=== PATIENT | female | born 1955 | race Caucasian/White ===

== ENCOUNTER 2024-04-17 08:34 | Outpatient (CLI) | payer OTHER, SELFPAY ==
--- NOTE | ~2024-04-17 | MMUS_ITS ---
1 EXAMINATION: US breast biopsy RT w image, MM post biopsy diagnostic RT DATE: 04/17/2024 10:01 (accession [id number]), 04/17/2024 09:52 (accession [id number]) INDICATION: 68 year old woman with significant family history of breast cancer presents with a right breast mass for ultrasound-guided biopsy BREAST PARENCHYMAL COMPOSITION:Not dense: Scattered fibroglandular pattern TECHNIQUE: The procedure including the risks, benefits, and alternatives was discussed with the patie nt. Risks discussed included bleeding and infection. The patient understood the risks and agreed to proceed. The skin overlying the right breast lesion was prepped and draped in usual sterile fashion. Anesthet ic was administered with 1% lidocaine subcutaneously. Limited ultrasound examination of the right breast was then again performed. At the 4:00 position of the right breast approximately 5 cm from the nipple is an irregular focus of decreased echogenicity with angular margins measuring 11 x 13 x 9 mm, suitable for biopsy. A 13G introducer was placed using ultrasound guidance into the abnormality at the 4:00 position of th e right breast, and the inner needle removed. A 14-gauge biopsy device was then used to obtain 3 biopsy specimens under continuous sonographic guid ance. The biopsy device was then removed, and through the introducer a coil marker was placed. The entry site was cleaned and dressed with Steri-Strips. There were no immediate complications. Post biopsy mammography was then performed in both the CC and MLO positions demonstrating a coil micr oclip in the lower inner quadrant of the right breast without a significant perilesional hematoma. IMPRESSION: 1. Technically successful ultrasound-guided core needle biopsy of the mammographic and sonographic ab normality at the 4:00 position of the right breast with postprocedure mammogram marker placement. Pathology pending Reviewed, dictated and finalized at location A. DRY ROUTEMAN IMPRESSION: 1. Technically successful ultrasound-guided core needle biopsy of the mammograp hic and sonographic abnormality at the 4:00 position of the right breast with p ostprocedure mammogram marker placement. Pathology pending
--- OUTSIDE RECORDS SUMMARY | 2024-04-17 08:56 | XMS_ITS | Data Portability ---
Author Organization [facility], Main Office Address [address] [place] [address] Care Team Providers Care Energy Efficiency Finance Manager Name Role Phone ENZO BUTTS Primary Care Provider ENZO BUTTS Referring Provider Assessment Encounter Date Assessment Date Assessment LastModified by Organization Details LastModified Time 01/20/2023 01/20/2023 HPI: 67-year-old female who came in today for evaluation of her right knee pain. She fell early September directly onto her right patella. Since that time she has been having pain in the knee. She saw her primary care doctor and had x-rays done on September 26. I reviewed the x-rays which show no definite bony abnormalities. Patient's chief complaint is that she cannot kneel on the right knee. She has severe pain when she does this. Most the pain is over the anterior lateral aspect of the knee. She has been using a cane his she has been limping a little bit and the knee will occasionally buckle on her. Prior to this fall she was having no problems with the knee. Patient has been taking [id number] Advil on an as-needed basis and this seems to help a little bit. Physical exam: 67-year-old female she is 5 ft tall and 161 lb BMI is 30.9. She walks with a minimal limp. She has a trace effusion in the right knee. Range of motion is from 0-140 degrees, at full flexion she has some discomfort in the anterior aspect of the knee. Hip range of motion is full without discomfort. She has severe pain with patellofemoral grind and inhibition testing. No medial or lateral joint line tenderness. She has no edema in lower extremity. 2+ dorsalis pedis pulse. Impression: Patient has anterior knee pain from fall in September. Her biggest complaint is that she can not kneel on the knee and we talked about impact injuries to the patella. I discussed with her that sometimes after an impact injury such as this may take another 6 or 7 months before she is comfortable kneeling on it. She has no real arthritic changes on the x-rays. There is no bony abnormalities. This is something that unfortunately is going to take time to improve. It has been almost 4 months since her fall and I did offer her a cortisone injection to see if this might help with some of the irritability but she declined this. She will keep this in mind if she feels she wishes to proceed with that in the future. I did note patient's past medical history is she had a coronary artery bypass graft done in 2007. She continues to smoke. I strongly advised her to quit smoking at this point. She has not seen a outside installer apprentice for over 10 years and I also recommended that she talk with her primary care doctor about being referred to a outside installer apprentice since she had surgery in no way it and she continues to smoke and I think he would be a good idea to have her evaluated. She will talk with her primary about this. We will see her back as needed. 30 minutes was spent in treatment patient more half of this in [id number] conversation [email or web address] Not available 01/20/2023 16:44:20 Plan of Treatment Reminders Order Date Submit Date Provider Last Modified By Organization Details Last Modified Time Details Appointments Any 15 2024 10:45A M ROBERTO Carlson Not available Not available Not available Lab hemoglobi n A1C, fingersti ck 2023 024 [facility] [address], [place], [address], 04/07/2023 10:45:58 T3, total, serum [address] (Lab), [address] [place], [address], 07/12/2023 08:46:38 T4, free, serum [address] (Lab), [address] [place], [address], 07/12/2023 08:46:38 TSH, serum or plasma 2023 024 [facility] (Lab), [address] [place], [address], 07/05/2023 17:34:19 unlisted lab - TSH receptor antibody [address] (Lab), [address] [place], [address], 07/12/2023 08:46:38 thyroid peroxidas e (tpo) Ab, serum [address] (Lab), [address] [place], [address], 07/12/2023 08:46:38 Hepatitis B virus core Ab, qual immunoass ay, serum or plasma [address] (Lab), [address] [place], [address], 07/12/2023 08:46:39 glycohemo globin, total, blood 2023 024 [facility] (Lab), [address] [place], [address], 07/05/2023 17:34:19 noninvasi ve colorecta l cancer DNA + occult blood screening , QL, stool [address], [address], [place], [address], 01/09/2024 17:12:48 glycohemo globin, total, blood [address] (Lab), [address] [place], [address], 01/09/2024 17:12:47 glycohemo globin, total, blood 2024 025 [facility] ([facility]), [address] [place], [address], 04/10/2024 11:44:16 Referral physical therapist referral - *Please call pt to schedule* 2023 024 [email or web address] 56 [facility], [address], [place], [address], 05/11/2023 11:48:01 gynecolog ist referral - Please call patient to schedule an appointme nt. Thank you. 2023 024 [email or web address] Terri Archibald, 2022 [facility], [facility] [address], [place], [address], Ph [phone] 08/03/2023 08:57:20 Procedures None recorded. Surgeries None recorded. Imaging XR, knee 2022 023 [email or web address] [facility] [place], [facility] [address] [facility] [address], [place], [address], 01/20/2023 16:46:06 MAMMO, screening , digital, bilateral 2023 024 [email or web address] 56 [facility] ([facility]), [address] [place], [address], 07/20/2023 09:21:55 MAMMO, screening , digital, bilateral - *Please call pt to schedule* 2023 024 [facility] ([facility]), [address] [place], [address], 02/07/2024 10:59:05 DEXA, axial skeleton - *Please call pt to schedule* 2023 024 [facility] ([facility]), [address] [place], [address], 02/07/2024 09:50:36 LDCT, chest, for lung cancer screening - *Please call pt to schedule* 2023 024 [facility] ([facility]), [address] [place], [address], 02/06/2024 14:22:23 Medication Orders cyclobenz aprine 5 mg tablet 2023 024 [facility]/Pharmacy #[id number], [address] [place] [address], [address], 07/05/2023 11:00:08 Depo-Medr ol 80 mg/mL suspensio n for injection 2023 024 [email or web address] 1 Not available 04/06/2023 14:42:42 tramadol 50 mg tablet 2023 024 [facility]/Pharmacy #[id number], [address] [place] [address], [address], 04/06/2023 10:36:47 Trulicity 1.5 mg/0.5 mL subcutane ous pen injector [address] [id number], [address] [place] [address], [address], 07/05/2023 11:12:52 ondansetr on 4 mg disintegr ating tablet 2024 025 [id number], [address] [place], [place], [id number], 04/02/2024 12:59:57 metoclopr amide 10 mg tablet [address] [facility] #60981, [address] [place], [place], [id number], 04/02/2024 12:59:56 Trulicity 3 mg/0.5 mL subcutane ous pen injector [address] [facility] #70444, [address] [place], [place], [id number], 04/02/2024 12:55:35 Trelegy Ellipta 100 mcg-62.5 mcg-25 mcg powder for inhalatio n [address] [facility] #86407, [address] [place], [place], [id number], 04/02/2024 12:55:34 Patient TargetsNo targets recorded. Patient Instructions Encounter Date Encounter Id Patient Instructions Last Modified By Organization Details Last Modified Time 01/01/2024 [id number] dementia rating scale-2* [email or web address] Not available 01/01/2024 13:53:09 Timed Up and Go test (TUG)* Not available 01/01/2024 13:53:09 alcohol misuse* [email or web address] Not availab le 01/01/2024 13:53:09 depression screening* Not available 01/01/2024 13:53:09 multi-dimensiona l health assessment questionnaire* Not available 01/01/2024 14:14:41 Personalized [facility] lt Plan and Screening Recommendations Advance Directives - Do you have one? Yes Advance Directives - Do we have your advance directive on file in your health record? Primary Prevention/Interven tion (prevents or decreases the chance of common diseases from occurring) Smoking Risk: Alcohol Misuse Screening: Negative Weight: Appropriate Overwei ght continue your current weight loss efforts try to lose 5% of your body weight try to lose 10% of your body weight Physical activity: minimum of 10-20 minutes of activity that causes mild breathlessness/day minimum of 20-30 minutes activity that causes mild breathlessness/day Nutrition: Good Average Fall Risk (screened today): Refer to attached handout Preventing Falls: After your Visit Recommend regular use of cane or walker Vaccines Pneumococcal: Ordered Recommended today Recommended today, but you have declined Influenza: Ordered Recommended today Recommended today, but you have declined Chronic Disease Risks Stroke: Low Risk Intermediate Risk I have no recommendations Act robert diagnosis, Continue current treatment plan Heart Attack: Low risk Intermediate Risk I have no recommendations Act robert diagnosis, Continue current treatment plan Clogging of the Arteries: Low risk Intermediate Risk I have no recommendations Act robert diagnosis, Continue current treatment plan Diabetes: Secondary Prevention/Interven tion (detects treatable diseases before they may cause symptoms, disability, or ) Breast Cancer Screening with mammogram: Your next mammogram: Ordered Recommended today Cervical/Uterine/Ov milady Cancer Screening: Your next PAP/pelvic in: Referral to quality assurance director Recomm ended today Osteoporosis Screening: Your next DEXA in: Ordered Recomme nded today Date Screening Last Performed: Colon Cancer Screening: In: Ordered Recomme nded Eye Disease Screening: Dementia Risk: Low I have no recommendations Depression Screening: Negative Positive [email or web address] Not available 01/01/2024 14:35:50 Reason for Referral Physical Therapist Referral for Strain of muscle of right shoulder *Please call pt to schedule* Referring Physician: Enzo Butts [facility], Encounter Date: 04/06/2023 Smelter Operator Referral for Sc reening for malignant neoplasm of cervix Please call patient to schedule an appointment. Thank you. Referring Physician: Family Kate Coleman, Encounter Date: 07/05/2023 Results Created Date Observation Date Name Description Value Unit Range Abnormal Flag Note LastModifiedBy Organization Detail LastModifiedTime 12/28/1912/27/2022 hemog lobin A1C, finge rstic k HgbA1C 8.7% Not Available [facility], [place], [address], 12/27/2022 11:28:24 04/07/19 24 04/07/2023 hemog lobin A1C, finge rstic k HgbA1C 7.1 Not Available [facility], [place], [address], 04/07/2023 09:59:07 01/21/20 23 XR, knee No observ ation record ed. [email or web address] [facility] [place] [address], [place], [address], 01/20/2023 16:40:46 02/06/20 24 02/06/2024 LDCT, chest , for lung cance r scree siena No observ ation record ed. [address] [place], [address], 03/14/2024 14:48:26 02/06/20 24 02/06/2024 LDCT, chest , for lung cance r scree siena No observ ation record ed. [address] [place], [address], 03/14/2024 14:48:27 02/07/20 24 02/06/2024 DEXA, axial skele ton No observ ation record ed. [address] [place], [address], 03/14/2024 14:48:28 02/07/20 24 02/06/2024 DEXA, axial skele ton No observ ation record ed. [address] [place], [address], 03/14/2024 14:48:28 02/07/20 24 02/06/2024 MAMMO , scree siena, digit al, bilat eral No observ ation record ed. [address] [place], [address], 03/14/2024 14:48:29 02/07/20 24 02/06/2024 MAMMO , scree siena, digit al, bilat eral No observ ation record ed. [email or web address] [place] [address] [address] [place], [address], 02/07/2024 16:35:15 03/19/20 24 03/19/2024 , breas t, unila teral No observ ation record ed. [email or web address] [facility] [address], [place], [address], 03/22/2024 12:45:03 Result Notes None recorded. Problems Name Problem SNOMED Code Status Onset Date Resolution Date Notes Provider Name and Address Organization Details Recorded Time Hyperchole sterolemia 49966904 Active 2021 Not Available [facility] 4 07:27:58 Myocardial infarction 04101115 Active 2021 Not Available [facility] 4 07:27:58 Arthritis 4930397 Active 2021 Not Available [facility] 4 07:27:59 Diabetes mellitus 39660768 Active 2021 Not Available [facility] 4 07:27:59 Type 2 diabetes mellitus without complicati on 347327454 Active 2022 Not Available [facility] 4 07:27:58 Pain of right knee joint 9700186587490 00 Active 2022 Not Available [facility] 4 07:27:59 Chronic obstructiv e pulmonary disease 12544683 Active 2022 Not Available [facility] 4 07:27:58 Gastroesop hageal reflux disease 427707977 Active 2022 Not Available [facility] 4 07:27:58 Obstructiv e sleep apnea syndrome 31169610 Active 2022 Not Available [facility] 4 07:27:59 Strain of muscle of right shoulder 5870569142596 9105 Active 2023 Not Available [facility] 4 07:27:58 Serum thyroid stimulatin g hormone level outside reference range 234495423 Active 2023 ROBERTO Carlson [address], [facility] [address], [place], [address] , [facility] [employer] 4 11:10:02 Screening for malignant neoplasm of breast Active 2023 ROBERTO Carlson [address], [address], [place], [address] , [place] [facility] [employer] 4 11:13:25 Screening for malignant neoplasm of cervix Active 2023 ROBERTO Carlson [address], [address], [place], [address] , [employer] 4 11:14:04 Screening mammograph y Active 2023 ROBERTO Carlson [address], [address], [place], [address] , [employer] [facility] [facility] 4 13:05:50 Screening for osteoporos is Active 2023 ROBERTO Carlson [address], [address], [place], [address] , [employer] [facility] 4 13:54:52 Postmenopa usal osteoporos is 840234000 Active 2023 ROBERTO Carlson [address], [address], [place], [address] , [employer] [facility] 4 13:56:23 Nicotine dependence 29171495 Active 2023 ROBERTO Carlson [address], [address], [place], [address] , [employer] [facility] 4 13:57:11 Screening for malignant neoplasm of colon Active 2023 ROBERTO Carlson [address], [address], [place], [address] , [employer] [facility] [facility] 4 13:59:10 Mammograph y abnormal 044240687 Active 2023 ROBERTO Carlson [address], [address], [place], [address] , [employer] [facility] 4 16:35:38 Ultrasonog rosa of breast abnormal 8465863373140 9104 Active 2024 ROBERTO Carlson [address], [address], [place], [address] , [employer] 5 12:44:46 Gastropare sis syndrome 421729578 Active 2024 ROBERTO Carlson [address] [facility], [facility] [address], [place], [address] , [facility] [employer] 12:57:33 Nausea 280778888 Active 2024 ROBERTO Carlson [address] [facility], [facility] [address], [place], [address] , [employer] 5 12:58:11 Notes:Medical History: Depre ssion Right tinnitus Obesity with mild OSAHS, AHI = 13, 06/23/21, on CPAP c/o IVRC Hypertension Hyperlipidemia T2DM with neuropathy CAD s/p MT OA Procedure History: Right hand ganglion cyst excision 1965 T&A 1978 Left hand ganglion cyst excision 1985 1992 2 vessel CABG 2007 Staph wound I&D 2007 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 Procedures Surgical History Date Name Laterality Status Provider Name and Address Organization Details Recorded Time Medicare Wellness CPT Code, subsequent completed Leila North, [place] [employer] 01/01/2024 12:54:17 completed Not Available [facility] 0 05/19/2022 00:26:40 coronary artery bypass grafts x 2 completed Not Available [facility] 05/19/2022 00:26:40 Imaging Results Imaging Date Name Status LastModified by Organiz ation Details LastModified Time 01/20/2023 XR, knee completed [email or web address] [facility] [place] [address], [place], [address], 01/20/2023 16:40:46 02/06/2024 LDCT, chest, for lung cancer screening completed [address] [place], [address], 03/14/2024 14:48:26 02/06/2024 LDCT, chest, for lung cancer screening completed [address] [place], [address], 03/14/2024 14:48:27 02/06/2024 DEXA, axial skeleton completed [address] [place], [address], 03/14/2024 14:48:28 02/06/2024 DEXA, axial skeleton completed [address] [place], [address], 03/14/2024 14:48:28 02/06/2024 MAMMO, screening, digital, bilateral completed [address] [place], [address], 03/14/2024 14:48:29 02/06/2024 MAMMO, screening, digital, bilateral completed [email or web address] [place], [address], 02/07/2024 16:35:15 03/19/2024 US, breast, unilateral completed [email or web address] [facility] [address] [place], [address], 03/22/2024 12:45:03 Procedure Notes None recorded. Medical Equipment None Reported. Allergies No known drug allergies Medications Name Sig Start Date Stop Date Status Note LastModified by Organization Details LastModified Time cyclobenz aprine 10 mg tablet TAKE 1 TABLET BY MOUTH THREE TIMES A DAY NEEDED FOR MUSCLE SPASMS active Not Available Not Available No t Available buspirone 5 mg tablet TAKE 1 TABLET BY MOUTH TWICE A DAY active Not Available Not Available No t Available trazodone 50 mg tablet TAKE 1/2 - 1 TABLET BY MOUTH NEEDED NIGHTLY active Not Available Not Available No t Available hydrocodo ne 5 mg-acetam inophen 325 mg tablet TAKE 1 TABLET BY MOUTH EVERY 6 HOURS NEEDED FOR PAIN. INDICATI ONS: ACUTE PAIN <7 DAY SUPPLY active Not Available Not Available No t Available meloxicam 15 mg tablet TAKE 1 TABLET (15 MG TOTAL) BY MOUTH DAILY. active Not Available Not Available No t Available amlodipin e 5 mg tablet TAKE 1 TABLET (5 MG TOTAL) BY MOUTH DAILY. active Not Available Not Available No t Available omeprazol e 40 mg capsule,d elayed release TAKE 1 CAPSULE BY MOUTH EVERY DAY active Not Available Not Available No t Available aspirin 81 mg tablet,de layed release Take 1 tablet every day by oral route. 2021 active Not Available Not Available Not Avai lable tramadol 50 mg tablet TAKE 1 TABLET BY MOUTH TWICE A DAY NEEDED active Not Available Not Available No t Available Depo-Medr ol 80 mg/mL suspensio n for injection Take 1 mL by injectio n route. 2023 active Not Available Not Available Not Avai lable lisinopri l 10 mg tablet TAKE 2 TABLETS BY MOUTH EVERY DAY active Not Available Not Available No t Available glimepiri de 4 mg tablet TAKE 2 TABLETS BY MOUTH DAILY WITH BREAKFAS T. active Not Available Not Available No t Available gabapenti n 300 mg capsule TAKE 1 CAPSULE BY MOUTH TWICE A DAY active Not Available Not Available No t Available gabapenti n 100 mg capsule TAKE 1 CAPSULE BY MOUTH TWICE A DAY 01/05 completed Not Available Not Available Not Available ondansetr on 4 mg disintegr ating tablet DISSOLVE ONE TABLET ON TOP OF THE TONGUE THREE TIMES DAILY 30 MINUTES BEFORE FOOD active Not Available Not Available No t Available metoclopr amide 10 mg tablet TAKE 1 TABLET BY MOUTH FOUR TIMES DAILY FOR 14 DAYS active Not Available Not Available No t Available escitalop ariana 20 mg tablet TAKE 1 TABLET BY MOUTH EVERY DAY active Not Available Not Available No t Available cyclobenz aprine 5 mg tablet Take 1 tablet every day by oral route at bedtime for 30 days. 07/04 completed dose adjustme nt Not Available Not Available Not Available rosuvasta tin 10 mg tablet TAKE 1 TABLET BY MOUTH EVERY DAY 09/26 completed Not Available Not Available Not Available Alcohol Prep Pads USE 1 DEVICE ONCE DAILY active Not Available Not Available No t Available aripipraz ole 2 mg tablet TAKE 1 TABLET BY MOUTH EVERYDAY AT BEDTIME 06/09 completed Not Available Not Available Not Available Januvia 100 mg tablet TAKE 1 TABLET BY MOUTH EVERY DAY active Not Available Not Available No t Available diclofena c 1 % topical gel APPLY 2 GRAMS TO THE AFFECTED AREAS 4 TIMES PER DAY active Not Available Not Available No t Available OneTouch Verio test strips USE TO TEST DAILY. E11.9 active Not Available Not Available No t Available Trulicity 1.5 mg/0.5 mL subcutane ous pen injector INJECT 1.5 MG SUBCUTAN EOUS ONE DAY A WEEK active Not Available Not Available No t Available Trulicity 0.75 mg/0.5 mL subcutane ous pen injector INJECT 0.75MG SUBCUTAN EOUSLY ONE TIME PER WEEK 12/31 completed Not Available Not Available Not Available OneTouch Verio Flex Meter PLEASE SEE ATTACHED FOR DETAILED DIRECTIO NS active Not Available Not Available No t Available Trelegy Ellipta 100 mcg-62.5 mcg-25 mcg powder for inhalatio n INHALE 1 PUFF BY MOUTH DAILY. RINSE MOUTH AFTER USE active Not Available Not Available No t Available OneTouch Delica Plus Lancet 33 gauge USE TO TEST DAILY E11.9 active Not Available Not Available No t Available Trulicity 3 mg/0.5 mL subcutane ous pen injector ADMINIST ER 3 MG UNDER THE SKIN EVERY WEEK active Not Available Not Available No t Available BinaxNOW COVID-19 Ag Self Test kit TAKE DIRECTED 12/21 completed Not Available Not Available Not Available Vitals Date Recorded Body height Body mass index (BMI) Body weight Provider Name and Address Organization Details Last Updated DateTime 01/20/2023 153.67 cm 30.9 kg/m2 53215.37 g NELDA John [facility] 01/20/2023 11:36:37 Date Recorded Body height Body mass index (BMI) Body weight Body temperature Heart rate Oxygen saturation Oxygen saturation in Arterial blood by Pulse oximetry Systolic blood pressure Diastolic blood pressure Provider Name and Address Organization Details Last Updated DateTime 4 153.67 cm 30 kg/m2 23481.4 1 g 97.4 [degF] 82 /min 97 % 97 % 124 mm[Hg] 76 mm[Hg] Ximena Hernandez MA [facility] 09:57:29 Date Recorded Body height Body mass index (BMI) Body weight Body temperature Respiratory rate Heart rate Oxygen saturation Oxygen saturation in Arterial blood by Pulse oximetry Systolic blood pressure Diastolic blood pressure Provider Name and Address Organization Details Last Updated DateTime 4 153.67 cm 31.3 kg/m2 02967.5 6 g 97.4 [degF] 16 /min 94 /min 97 % 97 % 142 mm[Hg] 80 mm[Hg] Leila North RN [facility] [employer] [facility] 4 11:02:41 Date Recorded Body height Body mass index (BMI) Body weight Body temperature Heart rate Oxygen saturation Oxygen saturation in Arterial blood by Pulse oximetry Systolic blood pressure Diastolic blood pressure Provider Name and Address Organization Details Last Updated DateTime 4 153.67 cm 31.1 kg/m2 57248.9 6 g 97.6 [degF] 71 /min 97 % 97 % 146 mm[Hg] 86 mm[Hg] Leila North RN [facility] [employer] [facility] 4 13:01:45 Date Recorded Body height Body mass index (BMI) Body weight Body temperature Heart rate Oxygen saturation Oxygen saturation in Arterial blood by Pulse oximetry Systolic blood pressure Diastolic blood pressure Provider Name and Address Organization Details Last Updated DateTime 5 153.67 cm 30 kg/m2 94406.8 5 g 97.7 [degF] 94 /min 98 % 98 % 156 mm[Hg] 78 mm[Hg] Alyssa Roca RN [facility] 5 12:49:28 Social History Question Answer Notes LastModified by Organizat ion Details LastModified Time Tobacco Smoking Status Current Every Day Smoker 1ppd Not Available [facility] 05/19/2022 00:26:20 What Is Your Level Of Alcohol Consumption? None [id number] Information not available 05/19/2022 What Is Your Level Of Caffeine Consumption? Moderate [id number] Information not available 05/19/2022 In The 14 Days Before Symptom Onset, Have You Had Close Contact With A Laboratory-confi rmed COVID-19 While That Case Was Ill? No MIGRATION.[id number] Information not available 05/19/2022 In The 14 Days Before Symptom Onset, Have You Had Close Contact With A Person Who Is Under Investigation For COVID-19 While That Person Was Ill? No MIGRATION.[id number] Information not available 05/19/2022 What Type Of Diet Are You Following? REGULAR MIGRATION.07696 92240 Information not available 05/19/2022 Do You Have An Electrostatic Air Filter? No MIGRATION.85442 19753 Information not available 05/19/2022 Are There Any Guns Present In Your Home? No MIGRATION.85694 52494 Information not available 05/19/2022 Do You Have A Humidifier? No MIGRATION.56567 27849 Information not available 05/19/2022 Where Do You Live? [place]House MIGRATION.84962 34462 Information not available 05/19/2022 Do You Have Moisture Problems In Your Home? No MIGRATION.66753 67425 Information not available 05/19/2022 What Was The Date Of Your Most Recent Tobacco Screening? 01/01/2024 [email or web address] Information not available 01/01/2024 Do You Have Any Pets? Yes MIGRATION.57256 77415 Information not available 05/19/2022 Do You Have Smoke And Carbon Monoxide Detectors In Your Home? Yes MIGRATION.94668 39870 Information not available 05/19/2022 Are You Passively Exposed To Smoke? Yes MIGRATION.67056 06960 Information not available 05/19/2022 How Much Tobacco Do You Smoke? 1 PPD [email or web address] Information not available 01/05/2023 Do You Feel Stressed (tense, Restless, Nervous, Or Anxious, Or Unable To Sleep At Night)? [id number] MIGRATION.50007 83470 Information not available 05/19/2022 Do You Use Sunscreen Routinely? No MIGRATION.00292 79513 Information not available 05/19/2022 How Many Years Have You Smoked Tobacco? 40 MIGRATION.92278 74075 Information not available 05/19/2022 Have You Recently Traveled Abroad? No MIGRATION.59341 77927 Information not available 05/19/2022 Sex: Unknown Functional Status Question Answer Note LastModified by Organizat ion Details LastModified Time What is your exercise level? Occasional [id number] Information not available 05/19/2022 Mental Status None recorded. Family History Relationship Description Onset Age of this Age Resolved Age Notes LastModified by Organization Details LastModified Time Mother Diabetes mellitus MIGRATION.732 [id number] Not available 05/19/2022 00:26:41 Mother Family history of malignant neoplasm MIGRATION.246 [id number] Not available 05/19/2022 00:26:41 Paternal Grandfather Diabetes mellitus MIGRATION.580 [id number] Not available 05/19/2022 00:26:42 Father Myocardial infarction MIGRATION.651 [id number] Not available 05/19/2022 00:26:42 Medical History Condition Response BLINDNESS N RHEUMATIC FEVER N KIDNEY STONES N BLADDER PROBLEMS N MRSA N OTHER # 1 N POLIO N LUNG DISEASE/DISORDER N HISTORY OF DRUG ABUSE N RADIATION / CHEMOTHERAPY N COPD N Other # 2 N BLOOD DISEASES N SURGERY N EAR OR HEARING PROBLEMS N MUMPS N SHINGLES N BOWEL PROBLEMS N FEMALE PROBLEMS / INFECTIONS N DEPRESSION (INCLUDING POST ) N STROKE/TIA N THYROID DISEASE N ULCERS N BENIGN PROSTATIC HYPERPLASIA N MEASLES N CERVICALGIA N HYPOTENSION N TB SKIN TEST N MYOCARDIAL INFARCTION N PARAPELGIA N OBESITY N GERD/NAUSEA N ANEURYSM N URINARY/BLADDER/KIDNEY PROBLEMS N CORONARY ARTERY DISEASE (CAD) N MENIERE'S DISEASE N ADDICTION CONCERNS N ENDOMETRIOSIS N USE OF BLOOD THINNERS N SKIN PROBLEMS N EMPHYSEMA N GASTROINTESTINAL DISORDER N MUSCLE,JOINT OR BONE PROBLEMS N GASTROINTESTINAL BLEEDING N BLOOD CLOTS N ASTHMA N CATARACTS N ERECTILE DYSFUNCTION N GI PROBLEMS N CHF N Low Testosterone N NEUROPATHY N INFERTILITY N AIDS/HIV N FRACTURES N CHEMOTHERAPY / RADIATION N VISION/EYE PROBLEMS N LIVER DISEASE N MALE HYPOGONADISM N HYPERTENSION N TOURETTE'S N ANXIETY DISORDER N BLOOD TRANSFUSION N ANEMIA/BLOOD DISORDER N CHRONIC EAR INFECTIONS N BRONCHITIS N TUBERCULOSIS N GLAUCOMA N FOOT PROBLEM N DIVERTICULITIS N CHICKENPOX N SLEEP APNEA N ALLERGIES/HAYFEVER N INFECTIOUS DISEASE N HEART ARRHYTHMIA N PROSTATE N INSOMNIA N HIGH CHOLESTEROL / HYPERLIPIDEMIA Y HYPERTHYROIDISM N EYE PROBLEMS N EATING DISORDER N EDEMA N CHRONIC PAIN SYNDROME N CONSTIPATION N CAROTID BLOCKAGE N BACK / NECK PROBLEMS Y HAVE YOU BEEN HOSPITALIZED OR SEEN IN [facility] IN THE PAST YEAR ? N ATHEROSCLEROSIS N BREAST PROBLEMS N DIALYSIS N ECZEMA N FIBROMYALGIA N OSTEOPOROSIS N ARTHRITIS Y NO SIGNIFICANT PAST MEDICAL HISTORY N APPENDICITIS N DIABETES, TYPE N BAD TEETH N HEARTBURN / REFLUX Y ADD/ADHD N AUTISM SPECTRUM DISORDER (ASD) N HEPATITIS / LIVER DISEASE N PULMONARY DISEASE N GOUT N SLEEP DISORDER N ALZHEIMER'S DISEASE N PAIN N HERPES N DEMENTIA N HEADACHES/MIGRAINES Y SEIZURES/EPILEPSY N VASCULAR DISEASE N PACEMAKER N DIZZINESS N HEART DISEASE/HEART PROBLEMS Y KIDNEY DISEASE N DEVELOPMENTAL OR BEHAVIORAL DISORDERS N MULTIPLE SCLEROSIS N SCARLET FEVER N MENTAL DISORDER/ILLNESS N CARDIAC ARRHYTHMIA N CANCER: SPECIFY N PNEUMONIA N ATRIAL FIBRILLATION N Gall Stones N PULMONARY EMBOLISM N AUTOIMMUNE DISEASE N Gynecological HistoryNo gynecological history recorded. Obstetrics History GPAL:G 0 P 0 0 0 0 Immunizations Vaccine Type Date Status Note Provider Nam e and Address Organization Details Recorded Time COVID-19, mRNA, LNP-S, PF, 30 mcg/0.3 mL dose 06/22/2021 completed Not Available [facility] 4 07:27:59 COVID-19, mRNA, LNP-S, PF, 30 mcg/0.3 mL dose 02/14/2021 completed Not Available [facility] 4 07:27:59 COVID-19, mRNA, LNP-S, PF, 30 mcg/0.3 mL dose 01/24/2021 completed Not Available [facility] 4 07:27:59 Past Encounters Encounter ID Performer Location Encounter Start Date Encounter Closed Date Diagnosis/Indication Diagnosis SNOMED-CT Code Diagnosis ICD10 Code Diagnosis Note [id number] [facility] Jasvir garcia [facility]ly [facility] [address] [place] [address] 06/09/2021 00:00:00 06/09/2021 19:55:37 [id number] [facility] Jasvir garcia [facility] [address] [place] [address] 07/07/2021 00:00:00 07/07/2021 09:32:03 [id number] [facility] [address] [address] 12/21/2021 00:00:00 12/21/2021 15:38:37 [id number] Jeffrey Guaman MD [facility] Jasvir garcia [facility] [address] [place] [address] 09/26/2022 09:32:19 09/26/2022 10:09:14 Type 2 diabetes mellitus without complication 540119855 E11.9 A1C is 11.3% Start trulicity Pain of ri ght knee joint 3006276518 42434 M25.561 Chronic ob structive pulmonary disease 18131091 J44.9 [id number] Jeffrey Guaman MD [facility] Jasvir garcia [address] [place] [address] 12/27/2022 09:24:12 12/27/2022 09:59:40 Type 2 diabetes mellitus without complication 973938438 E11.9 A1C is 8.7% down from 11.8% Continue trulicity Neuropathy 841692484 G62 .9 Pain of ri ght knee joint 1911954015 71100 M25.561 Gastroesop hageal reflux disease 427610846 K21.9 [id number] Ole Pierre MD [facility] [place] [address] [facility] [address] [place] [address] 01/05/2023 13:29:46 01/05/2023 14:55:23 Obstructive sleep apnea syndrome 32302025 G47.33 [id number] ROBERTO Archibald [facility] [place] [address] [place] [address] 01/20/2023 10:23:12 01/20/2023 16:46:05 Pain of right knee joint 9679607108 07127 M25.519 [id number] ROBERTO Carlson [facility] [place] [address] [facility] y [address] [place] [address] 04/06/2023 09:44:00 04/06/2023 10:55:13 Strain of muscle of right shoulder 8360899259 5694943 S46.911A Type 2 audi betes mellitus without complication 662022385 E11.9 Arthritis 2148941 M19.90 Chronic ob structive pulmonary disease 65219448 J44.9 Gastroesop hageal reflux disease 383978409 K21.9 Hypercholesterolemia 136 44789 E78.00 [id number] ROBERTO Carlson [facility] [place] [address] [facility] [place] [address] 07/05/2023 10:53:51 07/05/2023 11:22:29 Type 2 diabetes mellitus without complication 539500186 E11.9 Serum thyr oid stimulating hormone level outside reference range 042458383 R89.1 Uncontroll ed type 2 diabetes mellitus 251962070 E11.65 Screening for malignant neoplasm of breast 573676601 Z12.39 Screening for malignant neoplasm of cervix 121714470 Z12.4 Arthritis 5682792 M19.90 Chronic ob structive pulmonary disease 74461081 J44.9 Gastroesop hageal reflux disease 552271652 K21.9 Hypercholesterolemia 136 26381 E78.00 Obstructiv e sleep apnea syndrome 89556740 G47.33 [id number] ROBERTO Carlson [facility] [address] [facility] [place] [address] 01/01/2024 12:41:08 01/01/2024 13:13:48 Adult health examination 324467835 Z00.00 Screening for disorder 012311433 Z13.9 Screening mammography 24 583156 Z12.31 Type 2 audi betes mellitus without complication 073253728 E11.9 Postmenopa usal osteoporosis 840760081 M81.0 Nicotine dependence 5629 4008 F17.200 Z87.891 Screening for malignant neoplasm of colon 567610282 Z12.11 Arthritis 2479748 M19.90 Chronic ob structive pulmonary disease 14827721 J44.9 Gastroesop hageal reflux disease 716450822 K21.9 Hypercholesterolemia 136 62777 E78.00 Myocardial infarction 22 181582 I21.9 Obstructiv e sleep apnea syndrome 96540606 G47.33 [id number] ROBERTO Carlson [address] [address] 04/02/2024 12:44:42 04/02/2024 14:07:14 Chronic obstructive pulmonary disease 44341186 J44.9 Uncontroll ed type 2 diabetes mellitus 443088967 E11.65 Type 2 audi betes mellitus without complication 999418456 E11.9 Gastropare sis syndrome 157229767 K31.84 Nausea 218894361 R11.0 Obstructiv e sleep apnea syndrome 72738444 G47.33 Nicotine dependence 5629 4008 F17.200 Z87.891 Health Concerns Section Related Observation LastModified by Organization Detai ls LastModified Time None Recorded Concern Status LastModified by Organization Details LastModified Time None Recorded Advance Directives Directive None Recorded Payers Encounter Date Sequence Insurance Name Policy Number Policy Garcia Covered Member ID Garcia Member ID Guarantor Name 01/20/2023 1 [facility] ON OR AFTER 03/20/2020 - DUAL ELIGIBLE (MEDICARE REPLACEMENT/AD VANTAGE - HMO) [id number] Maryann Petersene [id number] Maryann Petersene 01/20/2023 2 [facility] ON OR AFTER 09/17/20 (MEDICAID REPLACEMENT - HMO) [id number] Maryann Henry [place]war [id number] Maryann Henry Petersene 04/06/2023 1 [facility] ON OR AFTER 03/20/2020 - DUAL ELIGIBLE (MEDICARE REPLACEMENT/AD VANTAGE - HMO) [id number] Maryann Henry Petersene [id number] Maryann Henry Petersene 04/06/2023 2 [facility] ON OR AFTER 09/17/20 (MEDICAID REPLACEMENT - HMO) [id number] Maryann Henry Petersene [id number] Maryann Henry Petersene 07/05/2023 1 [facility] ON OR AFTER 03/20/2020 - DUAL ELIGIBLE (MEDICARE REPLACEMENT/AD VANTAGE - HMO) [id number] Maryann Figueroa Edwar [id number] Maryann Henry Petersene 07/05/2023 2 [facility] ON OR AFTER 09/17/20 (MEDICAID REPLACEMENT - HMO) [id number] Maryann Henry Edwar [id number] Maryann Henry Petersene 01/01/2024 1 [facility] ON OR AFTER 03/20/2020 - DUAL ELIGIBLE (MEDICARE REPLACEMENT/AD VANTAGE - HMO) [id number] Maryann Figueroa [place] [id number] Maryann Henry Petersene 04/02/2024 1 [facility] ON OR AFTER 03/20/2020 - DUAL ELIGIBLE (MEDICARE REPLACEMENT/AD VANTAGE - HMO) [id number] Maryann Henry Petersene [id number] Maryann Henry [place] Notes Date Note Type Note Provider Name and Address Organization Details Recorded Time 04/06/2023 text/html right arm 3 weeks . 8 or 9 on a scale of 1-10 ROBERTO Carlson [address] [place] [address], [place], [address], [place] [facility] 04/08/2023 20:56:18 07/05/2023 text/html no changes , needs refills ROBERTO Carlson [address], [place], [address], [employer] 07/16/2023 23:41:07 01/01/2024 text/html Mainly lonely , daughter listens . no si/hi . lost a a daughter at age 2 and a daughter after paralyzed from an accident committed suicide ROBERTO Carlson [address], [place], [address], [employer] 01/02/2024 16:50:51 04/02/2024 text/html nausea and vomiting at night only ROBERTO Carlson [address], [place], [address], [employer] 04/09/2024 15:31:22 OBGyn Episode No OBEpisode recorded.
--- OUTSIDE RECORDS SUMMARY | 2024-04-17 08:57 | XMS_ITS | Patient Health Summary ---
Author Organization [facility] Address [address] [facility] [place] [address] Care Team Providers Care Flight Control Manager Name Role Phone Katlheen Flores APRN-BIOLOGY PROFESSOR Unavailable [phone] [facility],non-owned Affiliates and Associated Physician Practices is amultiple site organization consisting of ambulatory clinics and hospital sitesin [place], [place], [place] and [place]. This disclosure is being madepursuant to the Care Everywhere program and may not contain all information available regarding this patient. Last updated 17.[facility] Allergies No known active allergies Medications * Be aware that medications may not be up to date on this document. Alwaysverify current medications with the patient. * aspirin EC (ECOTRIN) 81 MG tablet Take 81 mg by mouth once daily * gabapentin (NEURONTIN) 100 MG capsule(Started 01/15/2021) Take 1 (one) capsule by mouth 2 times daily 3 refills by 01/15/2022 * glimepiride (AMARYL) 4 MG tablet(Started 01/15/2021) Take 2 (two) tablets by mouth daily with breakfast 3 refills by 01/15/2022 * SITagliptin (JANUVIA) 100 MG tablet(Started 01/15/2021) Take 1 (one) tablet by mouth once daily 3 refills by 01/15/2022 * traZODone (DESYREL) 50 MG tablet(Started 01/25/2021) TAKE 0.5 (ONE-HALF) TABLET TO 1 (ONE) TABLET BY MOUTH NIGHTLY NEEDED 1 refill by 01/25/2022 * ARIPiprazole (ABILIFY) 2 MG tablet(Started 01/25/2021) TAKE 1 TABLET BY MOUTH EVERYDAY AT BEDTIME 1 refill by 01/25/2022 * escitalopram (LEXAPRO) 20 MG tablet(Started 03/02/2021) Take 1 (one) tablet by mouth once daily * Slbjgjhntjp-Ericuvbtv-Dwfxyo (TRELEGY ELLIPTA) 100-62.5-25 MCG/INH(Started 04/01/2021) Inhale 1 (one) puff by mouth once daily Rinse mouth after use 1 refill by 04/01/2022 * Alcohol Swabs (ALCOHOL PREP) 70 %(Started 04/01/2021) Use 1 device once daily * lancets(Started 04/01/2021) Use 1 (one) Each once daily (E11.9) Type 2 diabetes mellitus without complication, without long-term current use of insulin. Use [employer] lancets. * Blood Glucose Monitoring Suppl (AdcadeUCH VERIO FLEX SYSTEM) w/Device KIT (Started 04/01/2021) Use 1 kit as instructed once daily Test daily. (E11.9) Type 2 diabetes mellitus without complication, without long-term current use of insulin * blood glucose test strip(Started 04/01/2021) Use 1 (one) strip once daily Please dispense One Touch Verio strips (E11.9) Type 2 diabetes mellitus without complication, without long-term current use of insulin * lisinopril (PRINIVIL; ZESTRIL) 10 MG tablet(Started 04/09/2021) TAKE 1 TABLET BY MOUTH EVERY DAY * rosuvastatin (CRESTOR) 10 MG tablet(Started 04/09/2021) TAKE 1 TABLET BY MOUTH EVERY DAY Active Problems Problem Noted Date Diagnosed Date Type 2 diabetes mellitus wit hout complication, without long-term current use of insulin 12/08/2020 DM (diabetes mellitus) 03/20/2016 MDD (major depressive disord er), recurrent episode, moderate 03/20/2014 DC (myocardial infarction) 03/20/2007 COPD (chronic obstructive pulmonary disease) 03/2007 REYES (generalized anxiety disorder) Resolved Problems Problem Noted Date Diagnosed Date Resolved Date Moderate episode of recurren t major depressive disorder 01/09/2021 Immunizations * Covid Pfizer primary monovalent 12+ yr 0.3mL Purple cap(Given 02/14/2021, 02/14/2021, 01/24/2021) Social History Tobacco Use Types Packs/Day Years Used Date Smoking Tobacco: Every Day Cigarettes 1 54.4 Started: 12/08/1969 Smokeless Tobacco: Never Tobacco Cessation:Ready to Q uit: No; Counseling Given: Yes Alcohol Use Standard Drinks/Week Comments Never 0 (1 standard drink = 0.6 oz pur e alcohol) PHQ-2 Answer Date Recorded PHQ2 TOTAL SCORE 0 01/15/2021 Sex and Gender Information Value Date Recorded Sex Assigned at Female 12/11/2020 10:09 AM CDT Gender Identity Not on file Sexual Orientation Not on file Last Filed Vital Signs Vital Sign Reading Time Taken Comments Blood Pressure 137/85 01/15/2021 1:21 PM CDT Pulse 79 01/15/2021 1:21 PM CDT Temperature 36.7 ??C (98.1 ??F) 01/15/2021 1:21 PM CD T Respiratory Rate - - Oxygen Saturation 94% 01/15/2021 1:21 PM CDT Inhaled Oxygen Concentration - - Weight 83 kg (183 lb) 01/15/2021 1:21 PM CDT Height 156.2 cm (5' 1.5 ) 01/15/2021 1:21 PM CDT Body Mass Index 34.02 01/15/2021 1:21 PM CDT Procedures * HEPATITIS C ANTIBODY(Performed 01/15/2021) Performed for Medicare annual wellness visit, initial * HIV-1 HIV-2 ANTIBODY + HIV P24 AG PANEL(Performed 01/15/2021) Performed for Medicare annual wellness visit, initial * MICROALBUMIN URINE RANDOM(Performed 01/15/2021) Performed for Type 2 diabetes mellitus without complication, without long-term current use of insulin ([facility]) * URINALYSIS REFLEX MICROSCOPIC REFLEX CULTURE(Performed 01/15/2021) Performed for Type 2 diabetes mellitus without complication, without long-term current use of insulin (HCC) * TSH(Performed 01/15/2021) Performed for Type 2 diabetes mellitus without complication, without long-term current use of insulin ([facility]) * LIPID PROFILE(Performed 01/15/2021) Performed for Type 2 diabetes mellitus without complication, without long-term current use of insulin (HCC) * COMPREHENSIVE METABOLIC PANEL(Performed 01/15/2021) Performed for Type 2 diabetes mellitus without complication, without long-term current use of insulin (HCC) * CBC W AUTO DIFFERENTIAL(Performed 01/15/2021) Performed for Type 2 diabetes mellitus without complication, without long-term current use of insulin (HCC) * HEMOGLOBIN A1C - POINT OF CARE (AMB) SMGS(Performed 12/08/2020) Performed for Type 2 diabetes mellitus without complication, without long-term current use of insulin ([facility]) Results * HIV 1 & HIV 2 ANTIBODY (IN HOUSE) (01/15/2021 2:41 PM CDT) [facility] HIV1/2 Ab + P24 Ag NON-REACTI VE/NEGATIV E NON-REACTI VE/NEGATIV E 01/15/2021 7:[address] [facility] Blood BLOOD SPECIMEN / Unknown Venipuncture / Unknown 01/15/2021 2:41 PM CDT 01/15/2021 2:41 PM CDT Bisi Ko PA-C LAB - CHEMISTRY OSCAR ANDERSON Performing Organization Address City/State/[facility] Co de Phone Number [facility] [address] [place] [address] * (ABNORMAL) URINALYSIS REFLEX MICROSCOPIC REFLEX CULTURE (01/15/2021 2:41 PM CDT) [facility] Color UA Yellow Straw, Yellow, Dark Yellow 01/15/2021 5:[address] [facility] Clarity UA Slt Cloudy(A) Clear 01/15/2021 5:[address] [facility] Glucose UA 3+(A) Negative 01/15/2021 5:[address] [facility] Bilirubin UA Negative Negative 01/15/2021 5:[address] [facility] Ketone UA Negative Negative 01/15/2021 5:[address] [facility] Specific [place] UA 1.028 1.005 - 1.030 01/15/2021 5:[address] [facility] Blood UA Negative Negative 01/15/2021 5:[address] [facility] pH UA 5.0 5.0 - 8.0 pH 01/15/2021 5:[address] [facility] Protein UA Negative Negative 01/15/2021 5:[address] [facility] Urobilinogen UA Negative Negative mg/dL 01/15/2021 5:[address] [facility] Nitrite UA Negative Negative 01/15/2021 5:[address] [facility] Leukocyte UA Negative Negative 01/15/2021 5:[address] [facility] Urine Microscopy Urine microscopy not indicated 01/15/2021 5:[address] [facility] Reflex Status Culture not indicated 01/15/2021 5:[address] [facility] Urine URINE SPECIMEN OBTAINED BY CLEAN CATCH PROCEDURE / Unknown Collection / Unknown 01/15/2021 2:41 PM CDT 01/15/2021 2:[address] [facility] - 01/15/2021 5:16 PM CDT Bisi MEJIA-C LAB - URINALYSIS ORD ERABLES Performing Organization Address [facility] Co de Phone Number [facility] [address] * (ABNORMAL) MICROALBUMIN URINE RANDOM (01/15/2021 2:41 PM CDT) Microalbumin Urine 50.0(H) 0.0 - 20.0 mg/dL 01/15/2021 5:[address] [facility] Urine URINE SPECIMEN OBTAINED BY CLEAN CATCH PROCEDURE / Unknown Collection / Unknown 01/15/2021 2:41 PM CDT 01/15/2021 2:41 PM CDT Bisi MEJIA-C LAB - URINE CHEMISTR Y ORDERABLES Performing Organization Address [facility] de Phone Number [facility] [address] * (ABNORMAL) CBC WITH DIFFERENTIAL (01/15/2021 2:41 PM CDT) WBC 8.8 4.0 - 10.0 x10E9/L 01/15/2021 5:[address] [facility] RBC 5.39(H) 3.93 - 5.22 x10E12/L 01/15/2021 5:46 PM [facility] Hemoglobin 16.2(H) 11.2 - 15.7 gm/dL 01/15/2021 5:46 PM [facility] Hematocrit 48.0(H) 34.1 - 44.9 % 01/15/2021 5:46 PM [facility] MCV 89.1 78.0 - 100.0 fl 01/15/2021 5:46 PM [facility] MCH 30.1 25.6 - 34.0 pg 01/15/2021 5:46 PM [facility] MCHC 33.8 32.3 - 36.5 gm/dL 01/15/2021 5:46 PM [facility] RDW 12.9 11.6 - 14.4 % 01/15/2021 5:46 PM [facility] MPV 11.0 9.4 - 12.4 fl 01/15/2021 5:46 PM [facility] Platelet Count 181 163 - 369 x10E9/L 01/15/2021 5:46 PM [facility] Neutrophils % 56.8 40.0 - 75.0 % 01/15/2021 5:46 PM [facility] Lymphocytes % 36.3 19.3 - 53.1 % 01/15/2021 5:46 PM [facility] Monocytes % 4.6(L) 4.7 - 12.5 % 01/15/2021 5:46 PM [facility] Eosinophils % 1.8 0.7 - 7.0 % 01/15/2021 5:46 PM [facility] Basophils % 0.3 0.1 - 1.2 % 01/15/2021 5:46 PM [facility] Immature Granulocytes 0.2 0 - 0.5 % 01/15/2021 5:46 PM [facility] Neutrophil Absolute 4.98 1.56 - 6.13 x10E9/L 01/15/2021 5:46 PM [facility] Lymphocytes Absolute 3.19 1.18 - 3.74 x10E9/L 01/15/2021 5:46 PM [facility] Monocytes Absolute 0.40 0.24 - 0.86 x10E9/L 01/15/2021 5:46 PM [facility] Eosinophils Absolute 0.16 0.04 - 0.54 x10E9/L 01/15/2021 5:[address] [facility] Basophils Absolute 0.03 0.01 - 0.08 x10E9/L 01/15/2021 5:[address] [facility] Immature Granulocytes Absolute 0.02 0 - 0.03 x10E9/L 01/15/2021 5:[address] [facility] nRBC Auto 0 <=0 /100 WBC 01/15/2021 5:[address] [facility] nRBC Absolute 0.00 <=0 x10E9/L 01/15/2021 5:[address] [facility] Blood BLOOD SPECIMEN / Unknown Venipuncture / Unknown 01/15/2021 2:41 PM CDT 01/15/2021 2:41 PM CDT Bisi Ko PA-C LAB - HEMATOLOGY ORD ERABLES Performing Organization Address City/State/[facility] Co de Phone Number [facility] [address] * (ABNORMAL) COMPREHENSIVE METABOLIC PANEL (01/15/2021 2:41 PM CDT) Glucose 201(H) 70 - 125 mg/dL 01/15/2021 6:[address] [facility] Sodium 135(L) 136 - 145 mmol/L 01/15/2021 6:[address] [facility] Potassium 3.8 3.4 - 4.5 mmol/L 01/15/2021 6:[address] [facility] Chloride 103 98 - 107 mmol/L 01/15/2021 6:[address] [facility] CO2 22 22 - 29 mmol/L 01/15/2021 6:[address] [facility] Calcium 9.8 8.4 - 10.2 mg/dL 01/15/2021 6:[address] [facility] Anion Gap 14 10 - 20 mmol/L 01/15/2021 6:[address] [facility] BUN 12.7 9.8 - 20.1 mg/dL 01/15/2021 6:[address] [facility] Creatinine 0.76 0.57 - 1.11 mg/dL 01/15/2021 6:[address] [facility] eGFR by MDRD >60 >60 mL/min/1.7 3m2 01/15/2021 6:[address] [facility] eGFR by MDRD >60 >60 mL/min/1.7 3m2 01/15/2021 6:[address] [facility] Alkaline Phosphatase 105 40 - 150 U/L 01/15/2021 6:[address] [facility] ALT 14 5 - 55 U/L 01/15/2021 6:[address] [facility] AST 10 5 - 34 U/L 01/15/2021 6:[address] [facility] Protein Total 6.9 6.4 - 8.3 gm/dL 01/15/2021 6:[address] [facility] Albumin 3.9 3.5 - 5.0 gm/dL 01/15/2021 6:[address] [facility] Globulin Total 3.0 2.6 - 4.0 gm/dL 01/15/2021 6:[address] [facility] Albumin/Globulin Ratio 1.3 0.9 - 1.6 01/15/2021 6:[address] [facility] Bilirubin Total 0.4 0.2 - 1.2 mg/dL 01/15/2021 6:[address] [facility] Blood BLOOD SPECIMEN / Unknown Venipuncture / Unknown 01/15/2021 2:41 PM CDT 01/15/2021 2:41 PM CDT Bisi Ko PA-C LAB - CHEMISTRY OSCAR ANDERSON [facility] Organization Address [facility] de Phone Number [facility] [address] * (ABNORMAL) TSH (01/15/2021 2:41 PM CDT) [facility] TSH 0.153(L) 0.35 - 4.94 uIU/mL 01/15/2021 6:[address] [facility] Blood BLOOD SPECIMEN / Unknown Venipuncture / Unknown 01/15/2021 2:41 PM CDT 01/15/2021 2:41 PM CDT Bisi Ko PA-C LAB - CHEMISTRY OSCAR ANDERSON [facility] [address] * HEPATITIS C ANTIBODY (01/15/2021 2:41 PM CDT) Interpretation Hepatitis C Antibody HILARY Negative Negative 01/18/2021 9:18 AM CDT [facility] ([facility]) Comment: INTERPRETIVE INFORMATION: Hepatitis C Virus Antibody by HILARY Index: ??0.79 IV or less .................. Negative ??0.80 to 0.99 IV .................. Equivocal ??1.00 to 10.99 IV ................. Low Positive ??11.00 IV or greater .............. High Positive ??Index Value (IV) = Anti-HCV signal to cutoff (S/C)ratio This assay should not be used for blood donor screening, associated re-entry protocols, or for screening Human Cells, Tissues and Cellular and Tissue-Based Products (HCT/P). Interpretation Hepatitis C Antibody Index <0.02 IV 01/18/2021 9:18 AM CDT [facility] ([facility]) Comment: Performed by [email or web address], [address] [place] [address] [email or web address], Paty Monzon MD, Lab. Director Blood BLOOD SPECIMEN / Unknown Venipuncture / Unknown 01/15/2021 2:41 PM CDT 01/15/2021 2:41 PM CDT Bisi Ko PA-C LAB - CHEMISTRY OSCAR ANDERSON [facility] ([facility]) [address] * (ABNORMAL) LIPID PROFILE (01/15/2021 2:41 PM CDT) Cholesterol 158 <200 mg/dL 01/15/2021 6:[address] [facility] Triglycerides 153(H) <150 mg/dL 01/15/2021 6:[address] [facility] HDL Cholesterol 41 >40 mg/dL 6:[address] [facility] Chol HDL Ratio 3.9 1.0 - 6.0 01/15/2021 6:[address] [facility] LDL Calculated 86 65 - 130 mg/dL 01/15/2021 6:[address] [facility] VLDL Calculated 31(H) <=30 mg/dL 6:[address] [facility] Blood BLOOD SPECIMEN / Unknown Venipuncture / Unknown 01/15/2021 2:41 PM CDT 01/15/2021 2:41 PM CDT [facility] - 01/15/2021 6:13 PM CDT Lipid Profile Comment: CHOLESTEROL LEVEL..................CLINICAL INTERPRETATION LESS THAN 200 MG/DL..............................DESIRABLE 200-239 MG/DL..............................BORDERLINE HIGH GREATER THAN 240 MG/DL................................HIGH LDL-CHOLESTEROL LEVEL..............CLINICAL INTERPRETATION LESS THAN 100 MG/DL................................OPTIMAL 100-129 MG/DL.................................NEAR OPTIMAL GREATER THAN 160 MG/DL...........................HIGH RISK HDL RISK LEVEL GREATER THEN 60 MG/DL............................DECREASED 40-60 MG/DL........................................AVERAGE LESS THAN 40 MG/DL...............................INCREASED TRIGLYCERIDE LEVEL..................CLINICAL INTERPRETATION LESS THAN 150 MG/DL...............................DESIRABLE 150-199 MG/DL...............................BORDERLINE HIGH 200-499 MG/DL..........................................HIGH GREATER THAN 500..................................VERY HIGH THE NATIONAL CHOLESTEROL EDUCATION PROGRAM HAS SET THE ABOVE GUIDELINES (REFERANCE VALUES) FOR CHOLESTEROL AND HDL. RISK ASSOCIATED WITH CHOLESTEROL/HDL RATIOS RISK....................MALE RATIO.............FEMALE RATIO 1/2 AVERAGE.................<3.4.......................<3.3 LOW RISK.................... 4.0 ...................... 3.8 AVERAGE..................... 5.0 ...................... 4.5 2X AVERAGE.................. 9.5 ...................... 7.0 3X AVERAGE...................>23........................>11 Bisi Ko PA-C LAB - CHEMISTRY ORDE JUSTIN Performing Organization Address City/[facility]/ZIP Co de Phone Number [facility] [address] * (ABNORMAL) HEMOGLOBIN A1C - POINT OF CARE (AMB) [facility]GS (12/08/2020) [facility] Hemoglobin A1c POCT 12.2(A) 4.2 - 5.8 % [facility] QC Verified Yes Yes [facility] Blood BLOOD SPECIMEN / Unknown 12/08/2020 Bisi Ko PA-C LAB - POINT OF CARE ORDERABLES Performing Organization Address [facility] de Phone Number [facility] [address] [phone] Care Teams Flight Control Manager Relationship Specialty Start Date End Date Kathleen Flores, PIPING MANAGER-BIOLOGY PROFESSOR [address] [place] [address] Nurse Practitioner Nurse Practitioner Psychiatric Mental Health 12/08/20
--- OUTSIDE RECORDS SUMMARY | 2024-04-17 08:57 | XMS_ITS | Clinical Summary ---
Author Organization [facility] Address [address] [place] [address]. [place] [address] [place] [address] Care Team Providers Care Electrical Line Splicer Name Role Phone Guido Damon MD Unavailable [phone] Enzo Butts Primary Care Provider + Allergies Active Allergy Reactions Criticality Noted Date Comments Metformin Diarrhea Medium 08/15/2018 Medications HYDROcodone-acetam inophen (NORCO) 5-325 MG tabletIndications: Acute Pain < 7 Day Supply Take 1 tablet by mouth every 6 (six) hours as needed for Pain. Indications: Acute Pain < 7 Day Supply 20 tablet 4 Active cyclobenzaprine (FLEXERIL) 10 MG tablet Take 1 tablet (10 mg total) by mouth 3 (three) times daily as needed for Muscle Spasms. Active diclofenac sodium (VOLTAREN) 1 % gel Apply 2 g topically 4 (four) times daily. Active TRULICITY 1.5 MG/0.5ML injection Inject 1.5 mg into the skin once a week. Active escitalopram (LEXAPRO) 20 MG tablet Take 1 tablet (20 mg total) by mouth daily. Active TRELEGY ELLIPTA 100-62.5-25 MCG/ACT AEROSOL POWDER, BREATH ACTIVATED Take 1 puff by mouth daily. 3 Active gabapentin (NEURONTIN) 300 MG capsule Take 1 capsule (300 mg total) by mouth 2 (two) times daily. Active traMADol (ULTRAM) 50 MG tablet Take 1 tablet (50 mg total) by mouth 2 (two) times daily as needed for Pain. 4 Active omeprazole (PRILOSEC) 40 MG capsule Take 1 capsule (40 mg total) by mouth daily. Active traZODone (DESYREL) 50 MG tablet Take 0.5-1 tablets (25-50 mg total) by mouth nightly as needed for Sleep. Active glimepiride (AMARYL) 4 MG tablet Take 2 tablets (8 mg total) by mouth daily with breakfast. Active JANUVIA 100 MG tablet Take 1 tablet (100 mg total) by mouth daily. 3 Active aspirin EC (ECOTRIN) 81 MG tablet Take 1 tablet (81 mg total) by mouth daily. Active lisinopril (PRINIVIL) 10 MG tablet Take 2 tablets (20 mg total) by mouth daily. 60 tablet 4 Active amLODIPine (NORVASC) 5 MG tablet Take 1 tablet (5 mg total) by mouth daily. 30 tablet 4 Active busPIRone (BUSPAR) 5 MG tablet Take 1 tablet (5 mg total) by mouth 2 (two) times daily. 60 tablet 4 Active meloxicam (MOBIC) 15 MG tablet Take 1 tablet (15 mg total) by mouth daily. 30 tablet 4 Active ondansetron (ZOFRAN-ODT) 4 MG disintegrating tablet Take 1 tablet (4 mg total) by mouth every 8 (eight) hours as needed for Nausea. 20 tablet 4 Active Active Problems Problem Noted Date Diagnosed Date REYES (generalized anxiety disorder) 05/18/2023 05/18/2023 Chest pain 05/06/2023 Muscle strain of right shoulder 04/05/2023 05/18/2023 Obstructive sleep apnea syndrome 01/05/2023 05/18/2023 Gastroesophageal reflux disease 12/27/2022 05/18/2023 Arthralgia of right knee 09/26/2022 024 Severe obesity (BMI 35.0-39. 9) with comorbidity ([facility]) 06/06/2017 05/18/2023 Uncontrolled type 2 diabetes mellitus 10/06/2016 05/18/2023 Arthritis 10/05/2016 05/18/2023 Type 2 diabetes mellitus wit hout complication ([facility]) 10/05/2016 05/18/2023 Abscess of breast 07/14/2016 05/18/2023 DM (diabetes mellitus) ([facility]) 017 05/18/2023 Moderate episode of recurren t major depressive disorder ([facility]) 03/20/2014 05/18/2023 COPD (chronic obstructive pu lmonary disease) ([facility]) 03/20/2007 05/18/2023 SD (myocardial infarction) ([facility]) 03/200705/18/2023 Pure hypercholesterolemia Essential hypertension Atherosclerotic heart diseas e of [place] coronary artery without angina pectoris Hyperlipidemia Resolved Problems Problem Noted Date Diagnosed Date Resolved Date Establishing care with [facility] for 07/14/2016 05/18/2023 05/22/2023 Family History Medical History Relation Comments Heart Disease Father Hyperlipidemia Father Hypertension Father Cancer Mother breast Family history positive for sudden . Other Relation Status Comments Father (Age 46) Maternal Grandfather Maternal Grandmother (Age 98) Mother (Age 45) Other Paternal Grandfather Paternal Grandmother Social History Tobacco Use Types Packs/Day Years Used Date Smoking Tobacco: Smoker, Current Status Unknown Cigarettes 1 42 Tobacco Cessation:Ready to Q uit: No Alcohol Use Standard Drinks/Week Comments No 0 (1 standard drink = 0.6 oz pur e alcohol) [facility] Utilities Answer Date Recorded In the past 12 months has e [employer], gas, oil, or water [employer] threatened to shut off services in your home? Yes 05/06/2023 Humiliation, Afraid, Rape, and Kick questionnair e Answer Date Recorded Within the last year, have y ou been afraid of your partner or ex-partner? No 05/06/2023 Within the last year, have y ou been humiliated or emotionally abused in other ways by your partner or ex-partner? No Within the last year, have y ou been kicked, hit, slapped, or otherwise physically hurt by your partner or ex-partner? No 05/06/2023 Within the last year, have y ou been raped or forced to have any kind of sexual activity by your partner or ex-partner? No 05/06/2023 Social Connection and Isolat ion Panel [NHANES] Answer Date Recorded In a typical week, how many times do you talk on the phone with family, friends, or neighbors? More than three times a week 05/06/2023 How often do you get togethe r with friends or relatives? More than three times a week 05/06/2023 How often do you attend chur ch or orthodox services? More than 4 times per year 05/06/2023 Do you belong to any clubs o r organizations such as congregation groups, unions, fraternal or athletic groups, or school groups? Yes 05/06/2023 How often do you attend meet ings of the clubs or organizations you belong to? 1 to 4 times per year 05/06/2023 Are you , , di vorced, , never , or living with a partner? 05/06/2023 AUDIT-C Answer Date Recorded Q1: How often do you have a drink containing alc ohol? Never 05/06/2023 Average Number of Drinks Not on file 024 Frequency of Binge Drinking Not on file 04/20 Overall Financial Resource Strain (CARDIA) Answe r Date Recorded How hard is it for you to pa y for the very basics like food, housing, medical care, and heating? Very hard 05/06/2023 PHQ-2 Answer Date Recorded Patient Health Questionnaire-2 Score 0 05/06/2023 [facility] Questionnaire Answer Date Recorded Do you feel stress - tense, restless, nervous, or anxious, or unable to sleep at night because your mind is troubled all the time - these days? Very much 05/06/2023 Exercise Vital Sign Answer Date Recorde d On average, how many days pe r week do you engage in moderate to strenuous exercise (like a brisk walk)? 0 days 05/06/2023 On average, how many minutes do you engage in exercise at this level? 0 min 05/06/2023 Hunger Vital Sign Answer Date Recorded Within the past 12 months, y ou worried that your food would run out before you got the money to buy more. Sometimes true Within the past 12 months, t he food you bought just didn't last and you didn't have money to get more. Sometimes true PRAPARE - Transportation Answer Date Re corded In the past 12 months, has l ack of transportation kept you from medical appointments or from getting medications? Yes 04/20 In the past 12 months, has l ack of transportation kept you from meetings, work, or from getting things needed for daily living? Yes 05/06/2023 Housing Stability Vital Sign Answer Jayden e Recorded In the last 12 months, was t here a time when you were not able to pay the mortgage or rent on time? No 05/06/2023 In the last 12 months, how many places have you lived? 1 05/06/2023 In the last 12 months, was t here a time when you did not have a steady place to sleep or slept in a long term (including now)? Yes 05/06/2023 Comments Unknown Sex and Gender Information Value Date Recorded Sex Assigned at Female 05/06/2023 3:50 AM [employer]AN[facility] [employer] Legal Sex Female 11:41 PM CDT Gender Identity Female 05/06/2023 3:50 AM [facility] Sexual Orientation Not on file Occupation Industry Job Start Date Job End Date Not on file Not on file Not on file Not on file Last Filed Vital Signs Vital Sign Reading Time Taken Comments Blood Pressure 126/62 12/27/2023 12:30 AM CDT Pulse 59 12/27/2023 12:30 AM CDT Temperature 35.7 ??C (96.3 ??F) 12/26/2023 11:02 PM C DT Respiratory Rate 16 12/27/2023 12:30 AM CDT Oxygen Saturation 92% 12/27/2023 12:30 AM CDT Inhaled Oxygen Concentration - - Weight 74.8 kg (165 lb) 12/26/2023 11:02 PM CDT Height 154.9 cm (5' 1 ) 12/26/2023 11:02 PM CDT Body Mass Index 31.18 12/26/2023 11:02 PM CDT Plan of Treatment Health Maintenance Due Date Last Done Comments ASCVD Statin 1955 Colorectal Cancer Screening Colonoscopy (10 Years) 1955 Kidney Health Evaluation 1955 Pneumococcal Vaccine: 65+ Years (1 of 2 - PCV) 10/22/1961 Diabetes: Retinopathy Eye Exam 10/22/1973 DTaP, Tdap and Td Vaccines (1 - Tdap) 10/22/1974 Lung Cancer Screening 10/22/2005 RSV Immunization or 60+ Years (1 - Risk 60-74 years 1-dose series) 2015 Zoster Vaccines (2 of 3) 11/30/2016 10/05/2016 Annual Medicare Wellness Visit 10/22/2020 Dexa Scan (General) 10/22/2020 Mammogram Screening 03/18/2021 03/18/2019, 10/12/2016, 09/28/2016 Hemoglobin A1C 11/04/2023 05/06/2023, 11/19, 04/22/2020, Additional history exists COVID-19 Vaccine ( season) 2023 06/22/2021, 02/14/2021, 01/24/2021 Influenza Adult (#1) 2023 01/31/2018, 02/17/20 15 Lipid Panel 05/06/2024 05/06/2023, 11/18, 04/14/2015, Additional history exists Hepatitis C Completed 05/06/2023, 10/05/2016 Meningococcal B Vaccine Aged Out No l onger eligible based on patient's age to complete this topic Meningococcal Vaccine Aged Out No ludmila hedy eligible based on patient's age to complete this topic RSV Immunizations Under 20 Months Aged Out No longer eligible based on patient's age to complete this topic Procedures Procedure Name Priority Date/Time Associated Diagnosis Comments HEPATITIS PANEL,ACUTE Routine 05/06/2023 8:30 AM [facility] LIPID PANEL Routine 05/06/2023 8:30 AM [facility] HEMOGLOBIN, GLYCOSYLATED Routine 05/06/2023 8:30 AM [facility] from Last 3 Months or Most Recently Relevant to Health Maintenance Results * (ABNORMAL) HEMOGLOBIN, GLYCOSYLATED (05/06/2023 8:30 AM PL[facility]) HGB A1C 7.6(H) <5.7 % 05/06/2023 8:57 AM PLANER HAND [facility] Comment: INCREASED RISK OF DIABETES <5.7% ?NON-DIABETES 5.7-6.4% INCREASED RISK FOR FUTURE DIABETES > OR = 6.5 CONSISTENT WITH DIABETES STANDARDS OF MEDICAL CARE IN DIABETES-2010 DIABETES CARE, 33(SUPP 1): S1-S61,2010 ESTIMATED AVG GLUCOSE 171 mg/dL 05/06/2023 8:57 AM [facility] 05/06/2023 8:30 AM PL[facility] HAND Shanelle STALLINGSNP LABORATORY Final Res ult [facility] [address] [place] [address], * LIPID PANEL (05/06/2023 8:30 AM [facility]) CHOLESTEROL 161 <200.0 MG/DL 05/06/2023 9:32 AM [facility] TRIGLYCERIDES 64 <150 MG/DL 05/06/2023 9:32 AM [facility] HDL 70 >40.0 MG/DL 05/06/2023 9:32 AM [facility] LDL (CALCULATED) 78 <100 MG/DL 05/06/19 9:32 AM [facility] NON HDL CHOLESTEROL 91 <130 MG/DL 05/06 9:32 AM [facility] CHOL/HDL RATIO 2.3 0.0 - 4.5 05/06/2023 9:32 AM [facility] VLDL CALCULATION 13 5 - 55 MG/DL 05/06/2023 9:32 AM [facility] LIPID INTERPRETATION 05/06/2023 9:32 AM [facility] Comment: [facility] CONCENSUS REPORT RECOMMENDATIONS: ?ADULT ?CHILD ??LOW RISK: ?CHOLESTEROL ? <200 ? <170 ?TRIGLYCERIDE ?<150 ?--- ?HDL ? >=60 ?--- ?LDL ? <100 ? <110 ??BORDERLINE: ?CHOLESTEROL ? 200-239 ?? 170-199 ?TRIGLYCERIDE ?150-199 ? --- ?HDL ?40-59 ?--- ?LDL ? 100-159 ?? 110-129 ??HIGH RISK: ?CHOLESTEROL ? >=240 ?>=200 ?TRIGLYCERIDE ?>=200 ? --- ?HDL ?<40 ?--- ?LDL ? >=160 ?>=130 05/06/2023 8:30 AM [facility] us Shanelle Orellana APNP LABORATORY Final Res ult [facility] () [facility] [address] [place] [address], * HEPATITIS PANEL,ACUTE (05/06/2023 8:30 AM [facility]) HEPATITIS B SURFACE AG NON-REACTI VE NON-REACTI VE 05/08/2023 8:21 AM [facility] HEP B CORE IGM NON-REACTI VE NON-REACTI VE 05/08/2023 8:21 AM [facility] HAV IGM NON-REACTI VE NON-REACTI VE 05/08/2023 8:21 AM PL[facility] HAND [facility] HEPATITIS C AB NON-REACTI VE NON-REACTI VE 05/08/2023 8:21 AM PL[facility] HAND [facility] 05/06/2023 8:30 AM PL[facility] us Shanelle Orellana APNP LABORATORY Final Res ult [facility] [address] [place] [address], from Last 3 Months or Most Recently Relevant to Health Maintenance Additional Health Concerns Infection Onset Date Last Indicated MRSA Comment:05/06/23 Blood (RR) 05/06/2023 05/06/2023 Insurance [facility] Advance Directives Documents on File Type Date Recorded 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
--- OUTSIDE RECORDS SUMMARY | 2024-04-17 08:57 | XMS_ITS | Clinical Summary ---
Author Organization [facility] [employer] Address [address] [place] [address] Care Team Providers Care Revenue Integrity Analyst Name Role Phone Kathleen Flores APRN-OUTPATIENT CODER Unavailable [phone] Source Comments [facility] [employer],non-owned Affiliates and Associated Physician Practices is amultiple site organization consisting of ambulatory clinics and hospital sitesin [place], [place], [place] and [place]. This disclosure is being madepursuant to the Care Everywhere program and may not contain all information available regarding this patient. Last updated 17.[facility] [employer] Allergies No known active allergies Medications * Be aware that medications may not be up to date on this document. Alwaysverify current medications with the patient. Medication Sig Dispensed Refills Start Date End Date Status aspirin EC (ECOTRIN) 81 MG tablet Take 81 mg by mouth once daily Active gabapentin (NEURONTIN) 100 MG capsuleIndications: Chronic right-sided low back pain with right-sided sciatica Take 1 (one) capsule by mouth 2 times daily 60 capsule 3 01/15/2021 Active glimepiride (AMARYL) 4 MG tabletIndications:T ype 2 diabetes mellitus without complication, without long-term current use of insulin (HCC) Take 2 (two) tablets by mouth daily with breakfast 60 tablet 3 01/15/2021 Active SITagliptin (JANUVIA) 100 MG tabletIndications:T ype 2 diabetes mellitus without complication, without long-term current use of insulin (HCC) Take 1 (one) tablet by mouth once daily 30 tablet 3 01/15/2021 Active traZODone (DESYREL) 50 MG tabletIndications:M DD (major depressive disorder), recurrent episode, moderate (HCC),REYES (generalized anxiety disorder) TAKE 0.5 (ONE-HALF) TABLET TO 1 (ONE) TABLET BY MOUTH NIGHTLY NEEDED 30 tablet 1 01/25/2021 Active ARIPiprazole (ABILIFY) 2 MG tablet TAKE 1 TABLET BY MOUTH EVERYDAY AT BEDTIME 30 tablet 1 01/25/2021 Active escitalopram (LEXAPRO) 20 MG tablet Take 1 (one) tablet by mouth once daily 30 tablet 03/02/2021 Active Fluticasone-Umeclid in-Vilant (TRELEGY ELLIPTA) 100-62.5-25 MCG/INHIndications: Chronic obstructive pulmonary disease, unspecified COPD type ([facility]) Inhale 1 (one) puff by mouth once daily Rinse mouth after use 30 Each 1 04/01/2021 Active Alcohol Swabs (ALCOHOL PREP) 70 %Indications:Type 2 diabetes mellitus without complication, without long-term current use of insulin ([facility]) Use 1 device once daily 100 Each 04/01/2021 Active lancetsIndications: Type 2 diabetes mellitus without complication, without long-term current use of insulin ([facility]) Use 1 (one) Each once daily (E11.9) Type 2 diabetes mellitus without complication, without long-term current use of insulin. Use Onetouch Delica lancets. 100 Each 04/01/2021 Active Blood Glucose Monitoring Suppl (ONETOUCH VERIO FLEX SYSTEM) w/Device KITIndications:Type 2 diabetes mellitus without complication, without long-term current use of insulin ([facility]) Use 1 kit as instructed once daily Test daily. (E11.9) Type 2 diabetes mellitus without complication, without long-term current use of insulin 1 kit 04/01/2021 Active blood glucose test stripIndications:Ty pe 2 diabetes mellitus without complication, without long-term current use of insulin ([facility]) Use 1 (one) strip once daily Please dispense One Touch Verio strips (E11.9) Type 2 diabetes mellitus without complication, without long-term current use of insulin 50 strip 04/01/2021 Active lisinopril (PRINIVIL; ZESTRIL) 10 MG tabletIndications:T ype 2 diabetes mellitus without complication, without long-term current use of insulin ([facility]) TAKE 1 TABLET BY MOUTH EVERY DAY 90 tablet 04/09/2021 Active rosuvastatin (CRESTOR) 10 MG tabletIndications:T ype 2 diabetes mellitus without complication, without long-term current use of insulin (HCC) TAKE 1 TABLET BY MOUTH EVERY DAY 90 tablet 04/09/2021 Active Active Problems Problem Noted Date Diagnosed Date Type 2 diabetes mellitus wit hout complication, without long-term current use of insulin 12/08/2020 DM (diabetes mellitus) 03/20/2016 MDD (major depressive disord er), recurrent episode, moderate 03/20/2014 MD (myocardial infarction) 03/20/2007 COPD (chronic obstructive pulmonary disease) 03/2007 REYES (generalized anxiety disorder) Resolved Problems Problem Noted Date Diagnosed Date Resolved Date Moderate episode of recurren t major depressive disorder 01/09/2021 Immunizations Name Administration Dates Next Due Covid Pfizer primary monoval ent 12+ yr 0.3mL Purple cap 02/14/2021,02/14/2021,01/24/2021 Family History Medical History Relation Name Comments CAD (Coronary Artery Disease) Father Hyperlipidemia Father Hypertension Father Diabetes - Type 2 Maternal Grandmother Anxiety Disorder Mother Cancer - Breast Mother Other Paternal Grandfather TB Cancer - Breast Sister 1 Cancer - Other Sister 2 lung with met s Diabetes - Type 2 Sister 2 Relation Name Status Comments Father Maternal Grandfather Maternal Grandmother Mother Paternal Grandfather Paternal Grandmother Sister 1 Alive Sister 2 Alive Social History Tobacco Use Types Packs/Day Years [...] Mass Index 34.02 01/15/2021 1:21 PM CDT Plan of Treatment Health Maintenance Due Date Last Done Comments BONE DENSITY TESTING 1955 COLOGUARD (AGES 45-75) - COLON CA SCREENING 1955 COLON MONITORING 1955 COLONOSCOPY - COLON CA SCREENING 1955 CT COLONOGRAPHY - COLON CA SCREENING 1955 Colorectal Cancer Screening 1955 FIT - COLON CA SCREENING 1955 FLEX SIG - COLON CA SCREENING 1955 MAMMOGRAM 1955 DTAP/TDAP/TD VACCINES (1 - Tdap) 10/22/1974 PNEUMOCOCCAL VACCINE 50+ (1 of 2 - PCV) 10/22/1974 LUNG CANCER SCREENING 10/22/2005 ZOSTER VACCINE (1 of 2) 10/22/2005 Respiratory Syncytial Virus (RSV) Vaccine Pt: or over 60 yrs (1 - Risk 60-74 years 1-dose series) 2015 DIABETES-HGB A1C 03/09/2021 12/08/2020 DIABETES-FOOT EXAM WITH MONOFILAMENT 12/08/2021 12/08/2020 DIABETES-SERUM CREATININE 01/15/2022 01/15/2021 MEDICARE AWV ? 12 MONTHS 01/15/2022 01/15/2021 DIABETES RETINOPATHY SCREENING 12/07/2022 12/07/2020 (Done Outside Per Patient) COVID-19 VACCINE (4 - 2023-2 5 season) 2023 02/14/2021, 02/14/2021, 01/24/2021 INFLUENZA VACCINE (#1) 2023 DEPRESSION SCREENING 03/20/2024 DIABETES - URINE PROTEIN SCREENING 03/20/2024 01/15/2021 HEPATITIS C SCREENING Completed 01/15/2021 HEPATITIS B VACCINE Aged Out No longe r eligible based on patient's age to complete this topic HIB VACCINE Aged Out No longer eligi ble based on patient's age to complete this topic HPV VACCINE Aged Out No longer eligi ble based on patient's age to complete this topic MENINGOCOCCAL (Group B) VACCINE Aged Out No longer eligible based on patient's age to complete this topic MENINGOCOCCAL VACCINE Aged Out No ludmila hedy eligible based on patient's age to complete this topic Procedures Procedure Name Priority Date/Time Associated Diagnosis Comments MICROALBUMIN URINE RANDOM Routine 01/15/2021 2:41 PM CDT Type 2 diabetes mellitus without complication, without long-term current use of insulin (HCC) COMPREHENSIVE METABOLIC PANEL Routine 01/15/2021 2:41 PM CDT Type 2 diabetes mellitus without complication, without long-term current use of insulin (HCC) HEPATITIS C ANTIBODY Routine 01/15/2021 2:41 PM CDT Medicare annual wellness visit, initial HEMOGLOBIN A1C - POINT OF CARE (AMB) [facility] Routine 12/08/2020 Type 2 diabetes mellitus without complication, without long-term current use of insulin (HCC) from Last 3 Months or Most Recently Relevant to Health Maintenance Results * (ABNORMAL) MICROALBUMIN URINE RANDOM (01/15/2021 2:41 PM CDT) Microalbumin Urine 50.0(H) 0.0 - 20.0 mg/dL 01/15/2021 5:25 PM CDT [facility] Urine URINE SPECIMEN OBTAINED BY CLEAN CATCH PROCEDURE / Unknown Collection / Unknown 01/15/2021 2:41 PM CDT 01/15/2021 2:41 PM CDT Bisi Ko PA-C LAB - URINE CHEMISTR Y ORDERABLES Performing Organization Address City/State/[facility] Co de Phone Number [facility] [address] * (ABNORMAL) COMPREHENSIVE METABOLIC PANEL (01/15/2021 2:41 PM CDT) Glucose 201(H) 70 - 125 mg/dL 01/15/2021 6:13 PM CDT [facility] Sodium 135(L) 136 - 145 mmol/L 01/15/2021 6:13 PM [facility] Potassium 3.8 3.4 - 4.5 mmol/L 01/15/2021 6:13 PM [facility] Chloride 103 98 - 107 mmol/L 01/15/2021 6:13 PM [facility] CO2 22 22 - 29 mmol/L 01/15/2021 6:13 PM [facility] Calcium 9.8 8.4 - 10.2 mg/dL 01/15/2021 6:13 PM [facility] Anion Gap 14 10 - 20 mmol/L 01/15/2021 6:13 PM [facility] BUN 12.7 9.8 - 20.1 mg/dL 01/15/2021 6:13 PM [facility] Creatinine 0.76 0.57 - 1.11 mg/dL 01/15/2021 6:13 PM [facility] eGFR by MDRD >60 >60 mL/min/1.7 3m2 01/15/2021 6:13 PM [facility] eGFR by MDRD >60 >60 mL/min/1.7 3m2 01/15/2021 6:13 PM [facility] Alkaline Phosphatase 105 40 - 150 U/L 01/15/2021 6:13 PM [facility] ALT 14 5 - 55 U/L 01/15/2021 6:13 PM [facility] AST 10 5 - 34 U/L 01/15/2021 6:13 PM [facility] Protein Total 6.9 6.4 - 8.3 gm/dL 01/15/2021 6:13 PM [facility] Albumin 3.9 3.5 - 5.0 gm/dL 01/15/2021 6:13 PM [facility] Globulin Total 3.0 2.6 - 4.0 gm/dL 01/15/2021 6:13 PM [facility] Albumin/Globulin Ratio 1.3 0.9 - 1.6 01/15/2021 6:13 PM [facility] Bilirubin Total 0.4 0.2 - 1.2 mg/dL 01/15/2021 6:13 PM [facility] Blood BLOOD SPECIMEN / Unknown Venipuncture / Unknown 01/15/2021 2:41 PM CDT 01/15/2021 2:41 PM CDT Bisi Ko PA-C LAB - CHEMISTRY [facility] [address] * HEPATITIS C ANTIBODY (01/15/2021 2:41 PM CDT) Interpretation Hepatitis C Antibody HILARY Negative Negative 01/18/2021 9:18 AM CDT [facility] ([facility]) Comment: INTERPRETIVE INFORMATION: Hepatitis C Virus Antibody [...] Index <0.02 IV 01/18/2021 9:18 AM CDT [facility] ([facility]) Comment: Performed by [email or web address], [address] [place], [place] [id number] [email or web address], Paty Monzon MD, Lab. Director Blood BLOOD SPECIMEN / Unknown Venipuncture / Unknown 01/15/2021 2:41 PM CDT 01/15/2021 2:41 PM CDT Bisi Ko PA-C LAB - CHEMISTRY OSCAR ANDERSON [facility] ([facility]) [address] [place], [place] [id number] [place] [address] * (ABNORMAL) HEMOGLOBIN A1C - POINT OF CARE (AMB) [facility] (12/08/2020) Hemoglobin A1c POCT 12.2(A) 4.2 - 5.8 % [facility] QC Verified Yes Yes [facility] Blood BLOOD SPECIMEN / Unknown 12/08/2020 Bisi Ko PA-C LAB - POINT OF CARE ORDERABLES [facility] [address] [place] [address], [facility] [phone] from Last 3 Months or Most Recently Relevant to Health Maintenance Care Teams Revenue Integrity Analyst Relationship Specialty Start Date End Date Kathleen Flores, ANIME ARTIST-OUTPATIENT CODER [address] [place] [address] Nurse Practitioner Nurse Practitioner Psychiatric Mental Health 12/08/20
--- OUTSIDE RECORDS SUMMARY | 2024-04-17 08:57 | XMS_ITS | Referral Summary ---
Author Organization [facility] [employer] Address [address] [place] [address] Care Team Providers Care Dyno Technician Name Role Phone Kathleen Flores APRN-CATEGORY DEVELOPMENT MANAGER Unavailable [phone] Source Comments [facility] [employer],non-owned Affiliates and Associated Physician Practices is amultiple site organization consisting of ambulatory clinics and hospital sitesin [place], [place], [place] and [place]. This disclosure is being madepursuant to the Care Everywhere program and may not contain all information available regarding this patient. Last updated 17.[facility] [employer] Allergies No known active allergies Medications * [...] Chronic obstructive pulmonary disease, unspecified COPD type ([facility]) Inhale 1 (one) puff by mouth once daily Rinse mouth after use 30 Each 1 04/01/2021 Active Alcohol Swabs (ALCOHOL PREP) 70 %Indications:Type 2 diabetes mellitus without complication, without long-term current use of insulin ([facility]) Use 1 device once daily 100 Each 04/01/2021 Active lancetsIndications: Type 2 diabetes mellitus without complication, without long-term current use of insulin ([facility]) Use 1 (one) Each once daily (E11.9) Type 2 diabetes mellitus without complication, without long-term current use of insulin. Use Onetouch Delica lancets. 100 Each 04/01/2021 Active Blood Glucose Monitoring Suppl (ONETOUCH VERIO FLEX SYSTEM) w/Device KITIndications:Type 2 diabetes mellitus without complication, without long-term current use of insulin ([facility]) Use 1 kit as instructed once daily Test daily. (E11.9) Type 2 diabetes mellitus without complication, without long-term current use of insulin 1 kit 04/01/2021 Active blood glucose test stripIndications:Ty pe 2 diabetes mellitus without complication, without long-term current use of insulin ([facility]) Use 1 (one) strip once daily Please dispense One Touch Verio strips (E11.9) Type 2 diabetes mellitus without complication, without long-term current use of insulin 50 strip 04/01/2021 Active lisinopril (PRINIVIL; ZESTRIL) 10 MG tabletIndications:T ype 2 diabetes mellitus without complication, without long-term current use of insulin ([facility]) TAKE 1 TABLET BY MOUTH EVERY DAY [...] depressive disord er), recurrent episode, moderate 03/20/2014 NC (myocardial infarction) 03/20/2007 COPD (chronic obstructive pulmonary disease) 03/2007 REYES (generalized anxiety disorder) Resolved Problems Problem Noted Date Diagnosed Date Resolved Date Moderate episode of recurren t major depressive disorder 01/09/2021 Immunizations Name Administration Dates Next Due Covid [place] primary monoval ent 12+ yr 0.3mL Purple cap 02/14/2021,02/14/2021,01/24/2021 Social History Tobacco Use Types Packs/Day Years [...] 01/15/2021 1:21 PM CDT Plan of Treatment Not on file Procedures Procedure Name Priority Date/Time Associated Diagnosis [...] mg/dL 01/15/2021 5:[address] [facility] Urine URINE SPECIMEN OBTAINED BY CLEAN CATCH PROCEDURE / Unknown Collection / Unknown 01/15/2021 2:41 PM CDT 01/15/2021 2:41 PM CDT Bisi Ko PA-C LAB - URINE CHEMISTR Y ORDERABLES Performing Organization Address [facility]/State/[facility] de Phone Number [facility] [address] * (ABNORMAL) COMPREHENSIVE METABOLIC PANEL (01/15/2021 2:41 PM CDT) Glucose 201(H) 70 - 125 mg/dL 01/15/2021 6:[address] [facility] Sodium 135(L) 136 - 145 mmol/L 01/15/2021 6:[address] [facility] Potassium 3.8 3.4 - 4.5 mmol/L 01/15/2021 6:[address] [facility] Chloride 103 98 - 107 mmol/L 01/15/2021 6:[address] [facility] CO2 22 22 - 29 mmol/L 01/15/2021 6:[address] [facility] Calcium 9.8 8.4 - 10.2 mg/dL 01/15/2021 6:[address] [facility] Anion Gap 14 10 - 20 mmol/L 01/15/2021 6:[address] [facility] BUN 12.7 9.8 - 20.1 mg/dL 01/15/2021 6:[address] [facility] Creatinine 0.76 0.57 - 1.11 mg/dL 01/15/2021 6:[address] [facility] eGFR by MDRD >60 >60 mL/min/1.7 3m2 01/15/2021 6:[address] [facility] eGFR by MDRD >60 >60 mL/min/1.7 3m2 01/15/2021 6:[address] [facility] Alkaline Phosphatase 105 40 - 150 U/L 01/15/2021 6:[address] [facility] ALT 14 5 - 55 U/L 01/15/2021 6:[address] [facility] AST 10 5 - 34 U/L 01/15/2021 6:[address] [facility] Protein Total 6.9 6.4 - 8.3 gm/dL 01/15/2021 6:[address] [facility] Albumin 3.9 3.5 - 5.0 gm/dL 01/15/2021 6:[address] [facility] Globulin Total 3.0 2.6 - 4.0 gm/dL 01/15/2021 6:[address] [facility] Albumin/Globulin Ratio 1.3 0.9 - 1.6 01/15/2021 6:[address] [facility] Bilirubin Total 0.4 0.2 - 1.2 mg/dL 01/15/2021 6:[address] [facility] Blood BLOOD SPECIMEN / Unknown Venipuncture / Unknown 01/15/2021 2:41 PM CDT 01/15/2021 2:41 PM CDT Bisi Ko PA-C LAB - CHEMISTRY [facility] Organization Address City/State/[facility] Co de Phone Number [facility] [address] [place], [place] [address] * HEPATITIS C ANTIBODY (01/15/2021 2:41 PM CDT) Interpretation Hepatitis C Antibody HILARY Negative Negative 01/18/2021 9:18 AM CDT [employer] ([facility]) Comment: INTERPRETIVE INFORMATION: Hepatitis C Virus Antibody [...] Index <0.02 IV 01/18/2021 9:18 AM CDT [employer] ([facility]) Comment: Performed by [facility], [address] [place] [address] [email or web address], Payt Monzon MD, Lab. Director Blood BLOOD SPECIMEN / Unknown Venipuncture / Unknown 01/15/2021 2:41 PM CDT 01/15/2021 2:41 PM CDT Bisi Ko PA-C LAB - CHEMISTRY OSCAR ANDERSON [employer] ([facility]) [address] * (ABNORMAL) HEMOGLOBIN A1C - POINT OF CARE (AMB) [facility] (12/08/2020) Pathologist [facility] Hemoglobin A1c POCT 12.2(A) 4.2 - 5.8 % [facility] QC Verified Yes Yes [facility] Blood BLOOD SPECIMEN / Unknown 12/08/2020 Bisi Ko PA-C LAB - POINT OF CARE ORDERABLES [facility] [address] [place] [address], [facility] [phone] from Last 3 Months or Most Recently Relevant to Health Maintenance Care Teams Dyno Technician Relationship Specialty Start Date End Date Kathleen Flores, SALES COMPENSATION ANALYST-CATEGORY DEVELOPMENT MANAGER [address] [place] [address] Nurse Practitioner Nurse Practitioner Psychiatric Mental Health 12/08/20
== END 2024-04-17 08:35 | disposition home or self-care (01) ==
PROVIDERS: PCP Physician Assistant; Visit Provider Surgery
DX: C50.811 Malignant neoplasm of overlapping sites of right female breast (principal); N63.14 Unspecified lump in the right breast, lower inner quadrant; N63.10 Unspecified lump in the right breast, unspecified quadrant; R92.8 Other abnormal and inconclusive findings on diagnostic imaging of breast
CPT/HCPCS: 19083; 77065; 88305; 88342; 88360; A4648

== ENCOUNTER 2024-05-03 14:11 | Outpatient (CLI) | payer MEDICARE, SELFPAY ==
--- OUTSIDE RECORDS SUMMARY | 2024-05-03 14:14 | XMS_ITS | Patient Health Summary ---
Author Organization [facility] Address [address] [place] [address] Care Team Providers Care Casting Machine Operator Helper Name Role Phone Kathleen Flores APRN-EDITORIAL PROJECT MANAGER Unavailable [phone] Note from [facility],non-owned Affiliates and Associated Physician Practices is amultiple site organization consisting of ambulatory clinics and hospital sitesin [place], [place], [place] and [place]. This disclosure is being madepursuant to the Care Everywhere program and may not contain all information available regarding this patient. Last updated 17.[facility] Allergies No known active allergies Medications * [...] (one) tablet by mouth once daily * Relddbemiwy-Xxlzaazkx-Xbwwbl (TRELEGY ELLIPTA) 100-62.5-25 MCG/INH(Started 04/01/2021) Inhale 1 (one) puff by mouth once daily Rinse mouth after use 1 refill by 04/01/2022 * Alcohol Swabs (ALCOHOL PREP) 70 %(Started 04/01/2021) Use 1 device once daily * lancets(Started 04/01/2021) Use 1 (one) Each once daily (E11.9) Type 2 diabetes mellitus without complication, without long-term current use of insulin. Use [employer] lancets. * Blood Glucose Monitoring Suppl (CoinsetterUCH VERIO FLEX SYSTEM) w/Device KIT (Started 04/01/2021) [...] depressive disord er), recurrent episode, moderate 03/20/2014 [place] (myocardial infarction) 03/20/2007 COPD (chronic obstructive pulmonary [...] 79 01/15/2021 1:21 PM CDT Temperature 36.7 C (98.1 F) 01/15/2021 1:21 PM CDT Respiratory Rate - - Oxygen Saturation 94% [...] complication, without long-term current use of insulin ([facility]) * URINALYSIS REFLEX MICROSCOPIC REFLEX CULTURE(Performed 01/15/2021) Performed for Type 2 diabetes mellitus without complication, without long-term current use of insulin ([facility]) * TSH(Performed 01/15/2021) Performed for Type 2 diabetes mellitus without complication, without long-term current use of insulin ([facility]) * LIPID PROFILE(Performed 01/15/2021) Performed for Type 2 diabetes mellitus without complication, without long-term current use of insulin ([facility]) * COMPREHENSIVE METABOLIC PANEL(Performed 01/15/2021) Performed for [...] complication, without long-term current use of insulin ([facility]) Results * HIV 1 & HIV 2 ANTIBODY (IN HOUSE) (01/15/2021 2:41 PM CDT) [facility] HIV1/2 Ab + P24 Ag NON-REACTI VE/NEGATIV E NON-REACTI VE/NEGATIV E 01/15/2021 7:01 PM CDT [facility] Blood BLOOD SPECIMEN / Unknown Venipuncture / Unknown 01/15/2021 2:41 PM CDT 01/15/2021 2:41 PM CDT Bisi Ko PA-C LAB - CHEMISTRY OSCAR ANDERSON Performing Organization Address [facility] Co de Phone Number [facility] [address] [place] [address] * (ABNORMAL) URINALYSIS REFLEX MICROSCOPIC REFLEX CULTURE (01/15/2021 2:41 PM CDT) [facility] Color UA Yellow Straw, Yellow, Dark Yellow 01/15/2021 5:16 PM CDT [facility] Clarity UA Slt Cloudy(A) Clear 01/15/2021 5:16 PM CDT [facility] Glucose UA 3+(A) Negative 01/15/2021 5:16 PM CDT [facility] Bilirubin UA Negative Negative 01/15/2021 5:16 PM CDT [facility] Ketone UA Negative Negative 01/15/2021 5:16 PM CDT [facility] Specific [place] UA 1.028 1.005 - 1.030 01/15/2021 5:16 PM CDT [facility] Blood UA Negative Negative 01/15/2021 5:16 PM CDT [facility] pH UA 5.0 5.0 - 8.0 pH 01/15/2021 5:16 PM CDT [facility] Protein UA Negative Negative 01/15/2021 5:16 PM CDT [facility] Urobilinogen UA Negative Negative mg/dL 01/15/2021 5:16 PM CDT [facility] Nitrite UA Negative Negative 01/15/2021 5:16 PM CDT [facility] Leukocyte UA Negative Negative 01/15/2021 5:16 PM CDT [facility] Urine Microscopy Urine microscopy not indicated 01/15/2021 5:16 PM CDT [facility] Reflex Status Culture not indicated 01/15/2021 5:16 PM CDT [facility] Urine URINE SPECIMEN OBTAINED BY CLEAN CATCH PROCEDURE / Unknown Collection / Unknown 01/15/2021 2:41 PM CDT 01/15/2021 2:41 PM CDT Narrative [facility] - 01/15/2021 5:16 PM CDT Bisi MEJIA-C LAB - URINALYSIS ORD ERABLES Performing Organization Address City/[facility] Co de Phone Number [facility] [address] * (ABNORMAL) MICROALBUMIN URINE RANDOM (01/15/2021 2:41 PM CDT) Pathologist [facility] Microalbumin Urine 50.0(H) 0.0 - 20.0 mg/dL 01/15/2021 5:25 PM CDT [facility] Urine URINE SPECIMEN OBTAINED BY CLEAN CATCH PROCEDURE / Unknown Collection / Unknown 01/15/2021 2:41 PM CDT 01/15/2021 2:41 PM CDT Bisi MEJIA-C LAB - URINE CHEMISTR Y ORDERABLES Performing Organization Address City/[facility] de Phone Number [facility] [address] * (ABNORMAL) CBC WITH DIFFERENTIAL (01/15/2021 2:41 PM CDT) Pathologist [facility] WBC 8.8 4.0 - 10.0 x10E9/L 01/15/2021 5:46 PM CDT [facility] RBC 5.39(H) 3.93 - 5.22 x10E12/L 01/15/2021 5:46 PM [facility] Hemoglobin 16.2(H) 11.2 - 15.7 gm/dL 01/15/2021 5:46 PM [facility] Hematocrit 48.0(H) 34.1 - 44.9 % 01/15/2021 5:46 PM [facility] MCV 89.1 78.0 - 100.0 fl 01/15/2021 5:46 PM [facility] MCH 30.1 25.6 - 34.0 pg 01/15/2021 5:46 PM [facility] MCHC 33.8 32.3 - 36.5 gm/dL 01/15/2021 5:46 PM [facility] RDW 12.9 11.6 - 14.4 % 01/15/2021 5:46 PM [facility] MPV 11.0 9.4 - 12.4 fl 01/15/2021 5:46 PM [facility] Platelet Count 181 163 - 369 x10E9/L 01/15/2021 5:46 PM [facility] Neutrophils % 56.8 40.0 - 75.0 % 01/15/2021 5:46 PM [facility] Lymphocytes % 36.3 19.3 - 53.1 % 01/15/2021 5:46 PM [facility] Monocytes % 4.6(L) 4.7 - 12.5 % 01/15/2021 5:46 PM [facility] Eosinophils % 1.8 0.7 - 7.0 % 01/15/2021 5:46 PM [facility] Basophils % 0.3 0.1 - 1.2 % 01/15/2021 5:46 PM [facility] Immature Granulocytes 0.2 0 - 0.5 % 01/15/2021 5:46 PM [facility] Neutrophil Absolute 4.98 1.56 - 6.13 x10E9/L 01/15/2021 5:46 PM [facility] Lymphocytes Absolute 3.19 1.18 - 3.74 x10E9/L 01/15/2021 5:46 PM [facility] Monocytes Absolute 0.40 0.24 - 0.86 x10E9/L 01/15/2021 5:46 PM [facility] Eosinophils Absolute 0.16 0.04 - 0.54 x10E9/L 01/15/2021 5:46 PM CDT [facility] Basophils Absolute 0.03 0.01 - 0.08 x10E9/L 01/15/2021 5:46 PM CDT [facility] Immature Granulocytes Absolute 0.02 0 - 0.03 x10E9/L 01/15/2021 5:46 PM CDT [facility] nRBC Auto 0 <=0 /100 WBC 01/15/2021 5:46 PM CDT [facility] nRBC Absolute 0.00 <=0 x10E9/L 01/15/2021 5:46 PM CDT [facility] Blood BLOOD SPECIMEN / Unknown Venipuncture / Unknown 01/15/2021 2:41 PM CDT 01/15/2021 2:41 PM CDT Bisi Ko PA-C LAB - HEMATOLOGY ORD ERABLES Performing Organization Address City/State/[facility] Co de Phone Number [facility] [address] * (ABNORMAL) COMPREHENSIVE METABOLIC PANEL (01/15/2021 2:41 PM CDT) Glucose 201(H) 70 - 125 mg/dL 01/15/2021 6:13 PM CDT [facility] Sodium 135(L) 136 - 145 mmol/L 01/15/2021 6:13 PM CDT [facility] Potassium 3.8 3.4 - 4.5 mmol/L 01/15/2021 6:13 PM CDT [facility] Chloride 103 98 - 107 mmol/L 01/15/2021 6:13 PM CDT [facility] CO2 22 22 - 29 mmol/L 01/15/2021 6:13 PM CDT [facility] Calcium 9.8 8.4 - 10.2 mg/dL 01/15/2021 6:13 PM CDT [facility] Anion Gap 14 10 - 20 mmol/L 01/15/2021 6:13 PM CDT [facility] BUN 12.7 9.8 - 20.1 mg/dL 01/15/2021 6:13 PM CDT [facility] Creatinine 0.76 0.57 - 1.11 mg/dL 01/15/2021 6:13 PM CDT [facility] eGFR by MDRD >60 >60 mL/min/1.7 3m2 01/15/2021 6:13 PM CDT [facility] eGFR by MDRD >60 >60 mL/min/1.7 3m2 01/15/2021 6:13 PM CDT [facility] Alkaline Phosphatase 105 40 - 150 U/L 01/15/2021 6:13 PM CDT [facility] ALT 14 5 - 55 U/L 01/15/2021 6:13 PM CDT [facility] AST 10 5 - 34 U/L 01/15/2021 6:13 PM CDT [facility] Protein Total 6.9 6.4 - 8.3 gm/dL 01/15/2021 6:13 PM CDT [facility] Albumin 3.9 3.5 - 5.0 gm/dL 01/15/2021 6:13 PM CDT [facility] Globulin Total 3.0 2.6 - 4.0 gm/dL 01/15/2021 6:13 PM CDT [facility] Albumin/Globulin Ratio 1.3 0.9 - 1.6 01/15/2021 6:13 PM CDT [facility] Bilirubin Total 0.4 0.2 - 1.2 mg/dL 01/15/2021 6:13 PM CDT [facility] Blood BLOOD SPECIMEN / Unknown Venipuncture / Unknown 01/15/2021 2:41 PM CDT 01/15/2021 2:41 PM CDT Bisi Ko PA-C LAB - CHEMISTRY ORDE [facility] Organization Address [facility] de Phone Number [facility] [address] * (ABNORMAL) TSH (01/15/2021 2:41 PM CDT) [facility] TSH 0.153(L) 0.35 - 4.94 uIU/mL 01/15/2021 6:33 PM CDT [facility] Blood BLOOD SPECIMEN / Unknown Venipuncture / Unknown 01/15/2021 2:41 PM CDT 01/15/2021 2:41 PM CDT Bisi Ko PA-C LAB - CHEMISTRY ORDE RABLES [facility] [address] * HEPATITIS C ANTIBODY (01/15/2021 2:41 PM CDT) Pathologist [facility] Interpretation Hepatitis C Antibody HILARY Negative Negative 01/18/2021 9:18 AM CDT [facility] [employer] ([facility]) Comment: INTERPRETIVE INFORMATION: Hepatitis C Virus Antibody by HILARY Index: 0.79 IV or less .................. Negative 0.80 to 0.99 IV .................. Equivocal 1.00 to 10.99 IV ................. Low Positive 11.00 IV or greater .............. High Positive Index Value (IV) = Anti-HCV signal to cutoff (S/C)ratio This assay should not be used for blood donor screening, associated re-entry protocols, or for screening Human Cells, Tissues and Cellular and Tissue-Based Products (HCT/P). Interpretation Hepatitis C Antibody Index <0.02 IV 01/18/2021 9:18 AM CDT [facility] ([facility]) Comment: Performed by [facility], [address] [place] [address] [email or web address], Paty Monzon MD, Lab. Director Blood BLOOD SPECIMEN / Unknown Venipuncture / Unknown 01/15/2021 2:41 PM CDT 01/15/2021 2:41 PM CDT Bisi Ko PA-C LAB - CHEMISTRY OSCAR ANDERSON [facility] ([facility]) [address] * (ABNORMAL) LIPID PROFILE (01/15/2021 2:41 PM CDT) Pathologist [facility] Cholesterol 158 <200 mg/dL 01/15/2021 6:13 PM CDT [facility] Triglycerides 153(H) <150 mg/dL 01/15/2021 6:13 PM CDT [facility] HDL Cholesterol 41 >40 mg/dL 6:13 PM CDT [facility] Chol HDL Ratio 3.9 1.0 - 6.0 01/15/2021 6:13 PM CDT [facility] LDL Calculated 86 65 - 130 mg/dL 01/15/2021 6:13 PM CDT [facility] VLDL Calculated 31(H) <=30 mg/dL 6:13 PM CDT [facility] Blood BLOOD SPECIMEN / Unknown Venipuncture / Unknown 01/15/2021 2:41 PM CDT 01/15/2021 2:41 PM CDT Narrative [facility] - 01/15/2021 6:13 PM CDT Lipid [...] Bisi Ko PA-C LAB - CHEMISTRY ORDE RABLES [facility] [address] * (ABNORMAL) HEMOGLOBIN A1C - POINT OF CARE (AMB) [facility] (12/08/2020) Hemoglobin A1c POCT 12.2(A) 4.2 - 5.8 % [facility] QC Verified Yes Yes [facility] Blood BLOOD SPECIMEN / Unknown 12/08/2020 Bisi Ko PA-C LAB - POINT OF CARE ORDERABLES Performing Organization Address [facility] de Phone Number [facility] [address] [phone] Care Teams Casting Machine Operator Helper Relationship Specialty Start Date End Date Kathleen Flores, INSTRUMENT PERSON-EDITORIAL PROJECT MANAGER [address] [place] [address] Nurse Practitioner Nurse Practitioner Psychiatric Mental Health 12/08/20
--- OUTSIDE RECORDS SUMMARY | 2024-05-03 14:14 | XMS_ITS | Clinical Summary ---
Author Organization [facility] Rg gonzalez Usha Address [address] [place] [address] Care Team Providers Care Leaf Sorter Name Role Phone Unavailable Primary Care Provider Unavailabl e Allergies Active Allergy Reactions Criticality Noted Date Comments Metformin Diarrhea Medium 08/15/2018 Penicillins Hives,Shortness of Breath/Wheezing High 05/03/2024 Medications aspirin (ECOTRIN EC) 81 mg Tablet, Delayed Release (E.C.) Take 81 mg by mouth daily. Active Trulicity 3 mg/0.5 mL injection ADMINISTER 3 MG UNDER THE SKIN EVERY WEEK Active escitalopram oxalate (LEXAPRO) 20 mg tablet Take 20 mg by mouth daily. Active Trelegy Ellipta 100-62.5-25 mcg Disk with Device INHALE 1 PUFF BY MOUTH DAILY. RINSE MOUTH AFTER USE Active glimepiride (AMARYL) 4 mg tablet take 2 tablets by mouth daily with breakfast. Active omeprazole (PriLOSEC) 40 mg Capsule, Delayed Release(E.C.) Take 40 mg by mouth daily. Active Januvia 100 mg Tablet Take 100 mg by mouth daily. Active traZODone (DESYREL) 50 mg tablet Take 25-50 mg by mouth 1 time daily as needed. Active Active Problems No known active problems Encounters Date Type Department Care Team Description 05/03/2024 1:30 PM BLOCK PRESS OPERATOR Office Visit [facility] Oncology and Hematology - [place] [address] [place] [address] Steven Sims MD Malignant neoplasm of upper-inner quadrant of right breast in female, estrogen receptor positive (CMS/HCC) (Primary Dx) from Last 3 Months Family History Medical History Relation Name Comments No Known Problems Child 1 1 Diabetes Child 2 2 No Known Problems Child 3 3 No Known Problems Child 4 4 No Known Problems Child 5 5 No Known Problems Child 6 miscarried No Known Problems Child 7 Diabetes Father Heart Disease Father Breast Cancer Mother Diabetes Sister 1 Lung Cancer Sister 1 Breast Cancer Sister 2 Diabetes Sister 2 Lung Cancer Sister 2 Relation Name Status Comments Child 1 1 Child 2 2 Alive Child 3 3 Alive Child 4 4 Alive Child 5 5 Child 6 miscarried Child 7 Alive Father Mother Sister 1 Sister 2 Alive Social History Tobacco Use Types Packs/Day Years Used Date Smoking Tobacco: Every Day Cigarettes 1 40 Started: 05/03/1984 Smokeless Tobacco: Never Alcohol Use Standard Drinks/Week Comments Never 0 (1 standard drink = 0.6 oz pur e alcohol) Comments Unknown Sex and Gender Information Value Date Recorded Sex Assigned at Not on file Legal Sex Female 1:40 PM BLOCK PRESS OPERATOR Gender Identity Not on file Sexual Orientation Not on file Last Filed Vital Signs Vital Sign Reading Time Taken Comments Blood Pressure 162/89 05/03/2024 1:30 PM BLOCK PRESS OPERATOR Pulse 75 05/03/2024 1:30 PM BLOCK PRESS OPERATOR Temperature 36.6 C (97.9 F) 05/03/2024 1:30 PM BLOCK PRESS OPERATOR Respiratory Rate 16 05/03/2024 1:30 PM BLOCK PRESS OPERATOR Oxygen Saturation 95% 05/03/2024 1:30 PM BLOCK PRESS OPERATOR Inhaled Oxygen Concentration - - Weight 68.5 kg (151 lb) 05/03/2024 1:30 PM BLOCK PRESS OPERATOR Height 154.9 cm (5' 1 ) 05/03/2024 1:30 PM BLOCK PRESS OPERATOR Body Mass Index 28.53 05/03/2024 1:30 PM BLOCK PRESS OPERATOR Plan of Treatment Upcoming Encounters Date Type Department Care Team (Late st Contact Info) Description 05/16/2024 4:30 PM BLOCK PRESS OPERATOR Telephone Check Up [facility] Oncology and Hematology - [place] [address] [facility] [address] [place] [address] Steven Sims MD [address] [facility] [address] [place] [address] Health Maintenance Due Date Last Done Comments DIABETES ANNUAL FOOT EXAM 10/22/1973 DIABETES ANNUAL RETINAL EXAM 10/22/1973 DIABETES MICROALBUMIN ANNUAL SCREEN 10/22/1973 LDL CHOLESTEROL ANNUAL 10/22/1973 DTAP/TDAP/TD VACCINES (1 - Tdap) 10/22/1974 PNEUMOCOCCAL VACCINE 65+ YEARS (1 of 2 - PCV) 10/22/18 75 BREAST CANCER SCREENING 1995 COLORECTAL SCREENING 10/22/2000 Colorectal Cancer Screening 10/22/2000 FIT-DNA Q 3 years 10/22/2000 FIT/FOBT Q 1 year 10/22/2000 Flex Sig/CT Colonography Q 5 years 10/22/2000 Lung Cancer Screening 10/22/2005 ZOSTER VACCINE (1 of 2) 10/22/2005 RSV VACCINE (60+ or ) (1 - Risk 60-74 years 1-dose series) 2015 OSTEOPOROSIS SCREENING 10/22/2020 INFLUENZA VACCINE (#1) 2023 DIABETES HBA1C Q 6 MONTHS 11/04/2023 05/06/2023 Preventative Visit- Commercial 03/20/2024 Insurance [facility] [id number]
--- OUTSIDE RECORDS SUMMARY | 2024-05-03 14:14 | XMS_ITS | Clinical Summary ---
Author Organization [facility] Address [address] [place] [address] Care Team Providers Care Absorber Operator Name Role Phone Kathleen Flores APRN-[employer]P [employer] Unavailable [phone] Source Comments [facility],non-owned Affiliates and Associated Physician Practices is amultiple site organization consisting of ambulatory clinics and hospital sitesin [place], [place], [place] and [place]. This disclosure is being madepursuant to the Care Everywhere program and may not contain all information available regarding this patient. Last updated 17.[facility] Allergies No known active allergies Medications * [...] obstructive pulmonary disease, unspecified COPD type ([facility]) Inhale 1 (one) puff by mouth once daily Rinse mouth after use 30 Each 1 04/01/2021 Active Alcohol Swabs (ALCOHOL PREP) 70 %Indications:Type 2 diabetes mellitus without complication, without long-term current use of insulin ([facility]) Use 1 device once daily 100 Each 04/01/2021 Active lancetsIndications: Type 2 diabetes mellitus without complication, without long-term current use of insulin ([facility]) Use 1 (one) Each once daily (E11.9) Type 2 diabetes mellitus without complication, without long-term current use of insulin. Use Onetouch Delica lancets. 100 Each 04/01/2021 Active Blood Glucose Monitoring Suppl (ONETOUCH VERIO FLEX SYSTEM) w/Device KITIndications:Type 2 diabetes mellitus without complication, without long-term current use of insulin ([facility]) Use 1 kit as instructed once daily Test daily. (E11.9) Type 2 diabetes mellitus without complication, without long-term current use of insulin 1 kit 04/01/2021 Active blood glucose test stripIndications:Ty pe 2 diabetes mellitus without complication, without long-term current use of insulin ([facility]) Use 1 (one) strip once daily Please dispense One Touch Verio strips (E11.9) Type 2 diabetes mellitus without complication, without long-term current use of insulin 50 strip 04/01/2021 Active lisinopril (PRINIVIL; ZESTRIL) 10 MG tabletIndications:T ype 2 diabetes mellitus without complication, without long-term current use of insulin ([facility]) TAKE 1 TABLET BY MOUTH EVERY DAY [...] depressive disord er), recurrent episode, moderate 03/20/2014 [place] (myocardial infarction) 03/20/2007 COPD (chronic obstructive pulmonary [...] 12/08/2020 DIABETES-SERUM CREATININE 01/15/2022 01/15/2021 MEDICARE AWV 12 MONTHS 01/15/2022 01/15/2021 DIABETES RETINOPATHY SCREENING 12/07/2022 12/07/2020 (Done Outside Per Patient) COVID-19 VACCINE (2023-2 5 season) 2023 02/14/2021, 02/14/2021, 01/24/2021 INFLUENZA [...] - 20.0 mg/dL 01/15/2021 5:25 PM CDT [facility] Urine URINE SPECIMEN OBTAINED BY CLEAN CATCH PROCEDURE / Unknown Collection / Unknown 01/15/2021 2:41 PM CDT 01/15/2021 2:41 PM CDT Bisi Ko PA-C LAB - URINE CHEMISTR Y ORDERABLES [facility] [address] [place] [address] * (ABNORMAL) COMPREHENSIVE METABOLIC PANEL (01/15/2021 2:41 PM CDT) Glucose 201(H) 70 - 125 mg/dL 01/15/2021 6:13 PM CDT [facility] Sodium 135(L) 136 - 145 mmol/L 01/15/2021 6:13 PM [facility] Potassium 3.8 3.4 - 4.5 mmol/L 01/15/2021 6:13 PM T [facility] Chloride 103 98 - 107 mmol/L 01/15/2021 6:13 PM T [facility] CO2 22 22 - 29 mmol/L 01/15/2021 6:13 PM T [facility] Calcium 9.8 8.4 - 10.2 mg/dL 01/15/2021 6:13 PM [facility] Anion Gap 14 10 - 20 mmol/L 01/15/2021 6:13 PM [facility] BUN 12.7 9.8 - 20.1 mg/dL 01/15/2021 6:13 PM T [facility] Creatinine 0.76 0.57 - 1.11 mg/dL 01/15/2021 6:13 PM [facility] eGFR by MDRD >60 >60 mL/min/1.7 3m2 01/15/2021 6:13 PM [facility] eGFR by MDRD >60 >60 mL/min/1.7 3m2 01/15/2021 6:13 PM [facility] Alkaline Phosphatase 105 40 - 150 U/L 01/15/2021 6:13 PM CDT [facility] ALT 14 5 - 55 U/L 01/15/2021 6:13 PM T [facility] AST 10 5 - 34 U/L 01/15/2021 6:13 PM T [facility] Protein Total 6.9 6.4 - 8.3 gm/dL 01/15/2021 6:13 PM [facility] Albumin 3.9 3.5 - 5.0 gm/dL 01/15/2021 6:13 PM [facility] Globulin Total 3.0 2.6 - 4.0 gm/dL 01/15/2021 6:13 PM [facility] Albumin/Globulin Ratio 1.3 0.9 - 1.6 01/15/2021 6:13 PM [facility] Bilirubin Total 0.4 0.2 - 1.2 mg/dL 01/15/2021 6:13 PM [facility] Blood BLOOD SPECIMEN / Unknown Venipuncture / Unknown 01/15/2021 2:41 PM CDT 01/15/2021 2:41 PM CDT Bisi Ko PA-C LAB - CHEMISTRY [facility] [address] * HEPATITIS C ANTIBODY (01/15/2021 2:41 PM CDT) Interpretation Hepatitis C Antibody HILARY Negative Negative 01/18/2021 9:18 AM CDT [facility] [facility] ([facility]) Comment: INTERPRETIVE INFORMATION: Hepatitis C Virus [...] Index <0.02 IV 01/18/2021 9:18 AM CDT [employer] [facility] ([facility]) Comment: Performed by [employer], [address] [place] [address] [email or web address], Paty Monzon MD, Lab. Director Blood BLOOD SPECIMEN / Unknown Venipuncture / Unknown 01/15/2021 2:41 PM CDT 01/15/2021 2:41 PM CDT Bisi Ko PA-C LAB - CHEMISTRY [facility] [employer] [facility] ([facility]) [address] * (ABNORMAL) HEMOGLOBIN A1C - POINT OF CARE (AMB) [facility] (12/08/2020) Hemoglobin A1c POCT 12.2(A) 4.2 - 5.8 % [facility] QC Verified Yes Yes [facility] Blood BLOOD SPECIMEN / Unknown 12/08/2020 Bisi Ko PA-C LAB - POINT OF CARE ORDERABLES [facility] [address] [place], [place] [address] [phone] from Last 3 Months or Most Recently Relevant to Health Maintenance Care Teams Absorber Operator Relationship Specialty Start Date End Date Kathleen Flores, INPATIENT CARE MANAGER RN-SVP [employer] [address] [place] [address] Nurse Practitioner Nurse Practitioner Psychiatric Mental Health 12/08/20
--- OUTSIDE RECORDS SUMMARY | 2024-05-03 14:14 | XMS_ITS | Data Portability ---
Author Organization [employer], Main Office Address [address] [place] [address] Assessment No assessment recorded. Plan of Treatment Reminders Order Date Submit Date Provider Last Modified By Organization Details Last Modified Time Details Appointments Follow Up 30 2024 10:30A M ROBERTO Carlson Not available Not available Not available Lab glycohemo globin, total, blood [address] (Lab), [address] [place], [address], 04/10/2024 11:44:16 noninvasi ve colorecta l cancer DNA + occult blood screening , QL, stool [address], [address], [place], [address], 01/09/2024 17:12:48 glycohemo globin, total, blood [address] (Lab), [address] [place], [address], 01/09/2024 17:12:47 T3, total, serum [address] (Lab), [address] [place], [address], 07/12/2023 08:46:38 T4, free, serum [address] (Lab), [address] [place], [address], 07/12/2023 08:46:38 TSH, serum or plasma 2023 024 [facility] (Lab), [address] [place], [address], 07/05/2023 17:34:19 unlisted lab - TSH receptor antibody [address] (Lab), [address] [place], [address], 07/12/2023 08:46:38 thyroid peroxidas e (tpo) Ab, serum [address] (Lab), [address] [place], [address], 07/12/2023 08:46:38 Hepatitis B virus core Ab, qual immunoass ay, serum or plasma [address] (Lab), [address] [place], [address], 07/12/2023 08:46:39 glycohemo globin, total, blood 2023 024 [facility] (Lab), [address] [place], [address], 07/05/2023 17:34:19 hemoglobi n A1C, fingersti ck 2023 024 [facility] [address], [place], [address], 04/07/2023 10:45:58 Referral gynecolog ist referral - Please call patient to schedule an appointme nt. Thank you. 2023 024 [email or web address] Terri Archibald, [address], [place], [address], Ph [phone] 08/03/2023 08:57:20 physical therapist referral - *Please call pt to schedule* 2023 024 [email or web address] 56 [facility], [address] [place], [address], 05/11/2023 11:48:01 Procedures None recorded. Surgeries None recorded. Imaging MAMMO, screening , digital, bilateral - *Please call pt to schedule* 2023 024 [facility] ([facility] Scheduling), [address] [place], [address], 02/07/2024 10:59:05 DEXA, axial skeleton - *Please call pt to schedule* 2023 024 [facility] ([facility] Scheduling), [address] [place], [address], 02/07/2024 09:50:36 LDCT, chest, for lung cancer screening - *Please call pt to schedule* 2023 024 [facility] (One Call Scheduling), [address] [place], [address], 02/06/2024 14:22:23 MAMMO, screening , digital, bilateral 2023 024 [email or web address] 56 [facility] (One Call Scheduling), [address] [place], [address], 07/20/2023 09:21:55 Medication Orders ondansetr on 4 mg disintegr ating tablet 2024 025 [facility] #83894, [address] [place] [address], [id number], 04/02/2024 12:59:57 metoclopr amide 10 mg tablet 2024 025 [facility] #34601, [address] [place], [place], [id number], 04/02/2024 12:59:56 Trulicity 3 mg/0.5 mL subcutane ous pen injector 2024 025 [facility] #95665, [address], [place], [id number], 04/02/2024 12:55:35 Trelegy Ellipta 100 mcg-62.5 mcg-25 mcg powder for inhalatio n 2024 025 [facility] #25133, [address], [place], [id number], 04/02/2024 12:55:34 Trulicity 1.5 mg/0.5 mL subcutane ous pen injector 2023 024 [facility]/Pharmacy #6926, [address] [place] [address], [address], 07/05/2023 11:12:52 cyclobenz aprine 5 mg tablet 2023 024 [email or web address], [address] [place] [address], [address], 07/05/2023 11:00:08 Depo-Medr ol 80 mg/mL suspensio n for injection 2023 024 [email or web address] 1 Not available 04/06/2023 14:42:42 tramadol 50 mg tablet 2023 024 [facility]/Pharmacy #6926, [address] [place] [address], [address], 04/06/2023 10:36:47 Patient TargetsNo targets recorded. Patient Instructions Encounter Date Encounter Id Patient Instructions Last Modified By Organization Details Last Modified Time 01/01/2024 [id number] dementia rating scale-2* [email or web address] Not available 01/01/2024 13:53:09 Timed Up and Go test (TUG)* [email or web address] Not available 01/01/2024 13:53:09 alcohol misuse* [email or web address] Not availab le 01/01/2024 13:53:09 depression screening* [email or web address] Not available 01/01/2024 13:53:09 multi-dimensiona l health assessment questionnaire* Not available 01/01/2024 14:14:41 Personalized Hea lth Plan and Screening Recommendations Advance Directives - Do you have one? Yes Advance Directives - Do we have your advance directive on file in your health record? Primary Prevention/Interven tion (prevents or decreases the chance of common diseases from occurring) Smoking Risk: Smoker Alcohol Misuse Screening: Negative Weight: Appropriate Overwei ght continue your current weight loss efforts try to lose 5% of your body weight try to lose 10% of your body weight Physical activity: Need more exercise/physical activity minimum of 10-20 minutes of activity that causes mild breathlessness/day minimum of 20-30 minutes activity that causes mild breathlessness/day Nutrition: Good Average Fall Risk (screened today): High Refer to attached handout Preventing Falls: After [...] robert diagnosis, Continue current treatment plan Diabetes: High Risk Active diagnosis, Continue current treatment plan Secondary Prevention/Interven tion (detects treatable diseases before they may cause symptoms, disability, or ) Breast Cancer Screening with mammogram: Your next mammogram: Ordered Recommended today Cervical/Uterine/Ov milady Cancer Screening: Your next PAP/pelvic in: Referral to lag screwer Recomm ended today Osteoporosis Screening: Your next DEXA in: Ordered Recomme nded today Date Screening Last Performed: Colon Cancer Screening: In: Ordered Recomme nded Eye Disease Screening: No Eye exam necessary Dementia Risk: Low I have no recommendations Depression Screening: Negative Positive Active diagnosis, Continue current treatment plan Not available 01/01/2024 14:35:50 Reason for Referral Physical Therapist Referral for Strain of muscle of right shoulder *Please call pt to schedule* Referring Physician: Enzo Butts [facility], Encounter Date: 04/06/2023 Pot Maker Referral for Sc reening for malignant neoplasm of cervix Please call patient to schedule an appointment. Thank you. Referring Physician: Enzo Butts [facility], Encounter Date: 07/05/2023 Results Created Date Observation Date Name Description Value Unit Range Abnormal Flag Note LastModifiedBy Organization Detail LastModifiedTime 04/07/19 24 04/07/2023 hemog lobin A1C, finge rstic k HgbA1C 7.1 Not Available [address], [place], [address], 04/07/2023 09:59:07 05/02/19 25 05/02/2024 hemog lobin A1C, finge rstic k HgbA1C 7.3 Not Available [address], [address], 05/02/2024 11:46:02 02/06/20 24 02/06/2024 LDCT, chest , for lung cance r scree siena No observ ation record ed. [address] [place], [address], 03/14/2024 14:48:26 02/06/20 24 02/06/2024 LDCT, chest , for lung cance r scree siena No observ ation record ed. [address] [place], [address], 03/14/2024 14:48:27 02/07/20 24 02/06/2024 DEXA, axial skele ton No observ ation record ed. [address] [place], [address], 03/14/2024 14:48:28 02/07/20 24 02/06/2024 DEXA, axial skele ton No observ ation record ed. [email or web address] [facility] [place] [facility] [address] [place], [address], 03/14/2024 14:48:28 02/07/20 24 02/06/2024 MAMMO , scree siena, digit al, bilat eral No observ ation record ed. [email or web address] [facility] [place] [facility] [address] [place], [address], 03/14/2024 14:48:29 02/07/20 24 02/06/2024 MAMMO , scree siena, digit al, bilat eral No observ ation record ed. [email or web address] [place] [address] [address] [place], [address], 02/07/2024 16:35:15 03/19/20 24 03/19/2024 US, roger t, unila teral No observ ation record ed. [email or web address] [facility] [place] [facility] [address] [place], [address], 03/22/2024 12:45:03 04/17/19 25 04/17/2024 biops y, breas t, w/ ultra sound serene nce (PROC ) No observ ation record ed. [email or web address] [place] [address] [address] [place], [address], 04/22/2024 14:46:42 04/19/19 25 04/17/2024 biops y, brekolby t (PROC ) No observ ation record ed. [email or web address] [facility] (Mammography) [address], [place], [address], 05/01/2024 11:50:52 Result Notes None recorded. Problems Name Problem SNOMED Code Status Onset Date Resolution Date Notes Provider Name and Address Organization Details Recorded Time Hyperchole sterolemia 00793923 Active 2021 Not Available [employer] 4 07:27:58 Myocardial infarction 73530839 Active 2021 Not Available [employer] 4 07:27:58 Arthritis 3081984 Active 2021 Not Available [employer] 4 07:27:59 Diabetes mellitus 73708357 Active 2021 Not Available [employer] 4 07:27:59 Type 2 diabetes mellitus without complicati on 149056906 Active 2022 Not Available [employer] 4 07:27:58 Pain of right knee joint 5759628388480 00 Active 2022 Not Available [facility] 4 07:27:59 Chronic obstructiv e pulmonary disease 97521384 Active 2022 Not Available [facility] 4 07:27:58 Gastroesop hageal reflux disease 231138921 Active 2022 Not Available [facility] 4 07:27:58 Obstructiv e sleep apnea syndrome 41563005 Active 2022 Not Available [facility] 4 07:27:59 Strain of muscle of right shoulder 5693105741583 9105 Active 2023 Not Available [facility] 4 07:27:58 Serum thyroid stimulatin g hormone level outside reference range 993979830 Active 2023 ROBERTO Carlson [address], [address], [place], [address] , [employer] [facility] 4 11:10:02 Screening for malignant neoplasm of breast Active 2023 ROBERTO Carlson [address], [address], [place], [address] , [place] - [facility] 4 11:13:25 Screening for malignant neoplasm of cervix Active 2023 ROBERTO Carlson [address], [address], [place], [address] , [employer] - [facility] 4 11:14:04 Screening mammograph y Active 2023 ROBERTO Carlson [address], [address], [place], [address] , [employer] 4 13:05:50 Screening for osteoporos is Active 2023 ROBERTO Carlson [address], [address], [place], [address] , [employer] 4 13:54:52 Postmenopa usal osteoporos is 682915009 Active 2023 ROBERTO Carlson [address], [address], [place], [address] , [employer] 4 13:56:23 Nicotine dependence 81027814 Active 2023 ROBERTO Carlson [address], [address], [place], [address] , [employer] 4 13:57:11 Screening for malignant neoplasm of colon Active 2023 ROBERTO Carlson [address], [address], [place], [address] , [employer] 4 13:59:10 Mammograph y abnormal 124405064 Active 2023 ROBERTO Carlson [address], [address], [place], [address] , [employer] 4 16:35:38 Ultr[employer]og rosa of breast abnormal 0441090649487 9104 Active 2024 ROBERTO Carlson [address], [address], [place], [address] , [employer] 5 12:44:46 Gastropare sis syndrome 765876545 Active 2024 ROBERTO Carlson [address], [address], [place], [address] , [employer] 5 12:57:33 Nausea 722566450 Active 2024 ROBERTO Carlson [address], [address], [place], [address] , [employer] 12:58:11 Notes:Medical History: Depralexis ssion Right tinnitus Obesity with mild OSAHS, AHI = 13, 06/23/21, on CPAP c/o IVRC Hypertension Hyperlipidemia T2DM with neuropathy CAD s/p CA OA Procedure History: Right hand ganglion cyst excision 1966 T&A 1978 Left hand ganglion cyst excision 1985 1992 2 vessel CABG 2007 Staph wound I&D 2007 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 Procedures Surgical History Date Name Laterality Status Provider Name and Address Organization Details Recorded Time 5 marker biopsy of breast lesion completed Alyssa Roca RN [facility] [employer] [facility] 04/18/2024 09:18:56 4 Medicare Wellness CPT Code, subsequent completed Leila North RN [facility] [employer] [facility] 01/01/2024 12:54:17 completed Not Available [facility] 0 05/19/2022 00:26:40 coronary artery bypass grafts x 2 completed Not Available [facility] 05/19/2022 00:26:40 Imaging Results Imaging Date Name Status LastModified by [facility]iz [facility] Details LastModified Time 02/06/2024 LDCT, chest, for lung cancer screening completed [address] [place], [address], 03/14/2024 14:48:26 02/06/2024 LDCT, chest, for lung cancer screening completed [address] [place], [address], 03/14/2024 14:48:27 02/06/2024 DEXA, axial skeleton completed [address] [place], [address], 03/14/2024 14:48:28 02/06/2024 DEXA, axial skeleton completed [address] [place], [address], 03/14/2024 14:48:28 02/06/2024 MAMMO, screening, digital, bilateral completed [address] [place], [address], 03/14/2024 14:48:29 02/06/2024 MAMMO, screening, digital, bilateral completed [email or web address] [facility] [place] [facility] [address] [place], [address], 02/07/2024 16:35:15 03/19/2024 US, breast, unilateral completed [email or web address] [facility] [place] [facility] [address] [place], [address], 03/22/2024 12:45:03 04/17/2024 biopsy, breast, w/ ultrasound guidance (PROC) completed [place] [address] [place] [address], [address], 04/22/2024 14:46:42 04/17/2024 biopsy, breast (PROC) completed [email or web address] [facility] (Mammography) [address], [place], [address], 05/01/2024 11:50:52 Procedure Notes None recorded. Medical Equipment None [...] THREE TIMES DAILY 30 MINUTES BEFORE FOOD 2024 active Not Available Not Available Not Avai lable metoclopr amide 10 mg tablet TAKE 1 [...] Available Not Available No t Available Trulicity 4.5 mg/0.5 mL subcutane ous pen injector Inject 4.5 mg every week by subcutan eous route for 30 days. 2024 active Not Available Not Available Not [facility]ai yumiko Mcdowell COVID-19 Ag Self Test kit TAKE DIRECTED 12/21 completed Not Available Not Available Not Available Vitals Date Recorded Body height Body mass index (BMI) Body weight Body temperature Heart rate Oxygen saturation Oxygen saturation in Arterial blood by Pulse oximetry Systolic blood pressure Diastolic blood pressure Provider Name and Address Organization Details Last Updated DateTime 4 153.67 cm 30 kg/m2 63825.4 1 g 97.4 [degF] 82 /min 97 % 97 % 124 mm[Hg] 76 mm[Hg] Ximena Hernandez MA [place] - [facility] 4 09:57:29 Date Recorded Body height Body mass index (BMI) Body weight Body temperature Respiratory rate Heart rate Oxygen saturation Oxygen saturation in Arterial blood by Pulse oximetry Systolic blood pressure Diastolic blood pressure Provider Name and Address Organization Details Last Updated DateTime 4 153.67 cm 31.3 kg/m2 32301.5 6 g 97.4 [degF] 16 /min 94 /min 97 % 97 % 142 mm[Hg] 80 mm[Hg] Leila North RN [facility] [employer] [facility] 4 11:02:41 Date Recorded Body height Body mass index (BMI) Body weight Body temperature Heart rate Oxygen saturation Oxygen saturation in Arterial blood by Pulse oximetry Systolic blood pressure Diastolic blood pressure Provider Name and Address Organization Details Last Updated DateTime 4 153.67 cm 31.1 kg/m2 48084.9 6 g 97.6 [degF] 71 /min 97 % 97 % 146 mm[Hg] 86 mm[Hg] Leila North RN [facility] [employer] [facility] 4 13:01:45 Date Recorded Body height Body mass index (BMI) Body weight Body temperature Heart rate Oxygen saturation Oxygen saturation in Arterial blood by Pulse oximetry Systolic blood pressure Diastolic blood pressure Provider Name and Address Organization Details Last Updated DateTime 5 153.67 cm 30 kg/m2 60984.8 5 g 97.7 [degF] 94 /min 98 % 98 % 156 mm[Hg] 78 mm[Hg] Alyssa Roca RN [facility] [employer] [facility] 5 12:49:28 Date Recorded Body height Body mass index (BMI) Body weight Body temperature Oxygen saturation Oxygen saturation in Arterial blood by Pulse oximetry Heart rate Systolic blood pressure Diastolic blood pressure Provider Name and Address Organization Details Last Updated DateTime 5 153.67 cm 29.5 kg/m2 93456.7 9 g 97.8 [degF] 97 % 97 % 84 /min 160 mm[Hg] 82 mm[Hg] Alyssa Roca RN [facility] [employer] [facility] 5 11:32:20 Social History Question Answer Notes LastModified by Organizat ion Details LastModified Time Tobacco Smoking Status Current Every Day Smoker 1ppd Not Available [employer] 05/19/2022 00:26:20 What Is Your Level Of Alcohol Consumption? None [id number] Information not available 05/19/2022 What Is Your Level Of Caffeine Consumption? Moderate MIGRATION.44106 94884 Information not available 05/19/2022 In The 14 Days Before Symptom Onset, Have You Had Close Contact With A Laboratory-gutierrezi portiaed COVID-19 While That Case Was Ill? No MIGRATION.93109 [id number] Information not available 05/19/2022 In The 14 Days Before Symptom Onset, Have You Had Close Contact With A Person Who Is Under Investigation For COVID-19 While That Person Was Ill? No MIGRATION.72751 47307 Information not available 05/19/2022 What Type Of Diet Are You Following? REGULAR MIGRATION.66269 74063 Information not available 05/19/2022 Do You Have An Electrostatic Air Filter? No MIGRATION.79895 37625 Information not available 05/19/2022 Are There Any Guns Present In Your Home? No MIGRATION.39540 91361 Information not available 05/19/2022 Do You Have A Humidifier? No MIGRATION.66396 75003 Information not available 05/19/2022 Where Do You Live? [place] MIGRATION.89945 04206 Information not available 05/19/2022 Do You Have Moisture Problems In Your Home? No MIGRATION.37653 02980 Information not available 05/19/2022 What Was The Date Of Your Most Recent Tobacco Screening? 01/01/2024 Information not available 01/01/2024 Do You Have Any Pets? Yes MIGRATION.13077 58719 Information not available 05/19/2022 Do You Have Smoke And Carbon Monoxide Detectors In Your Home? Yes MIGRATION.95416 15832 Information not available 05/19/2022 Are You Passively Exposed To Smoke? Yes MIGRATION.53638 03813 Information not available 05/19/2022 How Much Tobacco Do You Smoke? 1 PPD [email or web address] Information not available 01/05/2023 Do You Feel Stressed (tense, Restless, Nervous, Or Anxious, Or Unable To Sleep At Night)? HB82521-9 MIGRATION.87843 76706 Information not available 05/19/2022 Do You Use Sunscreen Routinely? No MIGRATION.38097 90417 Information not available 05/19/2022 How Many Years Have You Smoked Tobacco? 40 MIGRATION.31681 81536 Information not available 05/19/2022 Have You Recently Traveled Abroad? No MIGRATION.51405 50046 Information not available 05/19/2022 Sex: Unknown Functional Status Question Answer Note LastModified by Organizat ion Details LastModified Time What is your exercise level? Occasional [id number] Information not available 05/19/2022 Mental Status None recorded. Family History Relationship Description Onset Age of this Age Resolved Age Notes LastModified by Organization Details LastModified Time Mother Diabetes mellitus MIGRATION.711 [id number] Not available 05/19/2022 00:26:41 Mother Family history of malignant neoplasm MIGRATION.872 [id number] Not available 05/19/2022 00:26:41 Paternal Grandfather Diabetes mellitus MIGRATION.005 [id number] Not available 05/19/2022 00:26:42 Father Myocardial infarction MIGRATION.487 [id number] Not available 05/19/2022 00:26:42 Medical History Condition Response BLINDNESS N RHEUMATIC FEVER N KIDNEY STONES N BLADDER PROBLEMS N MRSA N OTHER # 1 N POLIO N LUNG DISEASE/DISORDER N HISTORY OF DRUG ABUSE N RADIATION / CHEMOTHERAPY N COPD N Other # 2 N BLOOD DISEASES N SURGERY N EAR OR HEARING PROBLEMS N MUMPS N SHINGLES N FEMALE PROBLEMS / INFECTIONS N BOWEL PROBLEMS N DEPRESSION (INCLUDING POST ) N STROKE/TIA N THYROID DISEASE N ULCERS N BENIGN PROSTATIC HYPERPLASIA N MEASLES N CERVICALGIA N TB SKIN TEST N HYPOTENSION N MYOCARDIAL INFARCTION N PARAPELGIA N OBESITY [...] GLAUCOMA N FOOT PROBLEM N DIVERTICULITIS N SLEEP APNEA N CHICKENPOX N ALLERGIES/HAYFEVER N INFECTIOUS DISEASE N PROSTATE N HEART ARRHYTHMIA N INSOMNIA N HIGH CHOLESTEROL / HYPERLIPIDEMIA Y EYE PROBLEMS N HYPERTHYROIDISM N EATING DISORDER N EDEMA N CHRONIC PAIN SYNDROME N CONSTIPATION N CAROTID BLOCKAGE N BACK / NECK PROBLEMS Y HAVE YOU BEEN HOSPITALIZED OR SEEN IN [facility] IN THE PAST YEAR ? N [...] DISORDER N ALZHEIMER'S DISEASE N PAIN N DEMENTIA N HERPES N SEIZURES/EPILEPSY N HEADACHES/MIGRAINES Y VASCULAR DISEASE N PACEMAKER N DIZZINESS N HEART DISEASE/HEART PROBLEMS Y KIDNEY DISEASE N SCARLET FEVER N MULTIPLE SCLEROSIS N DEVELOPMENTAL OR BEHAVIORAL DISORDERS N MENTAL DISORDER/ILLNESS N CANCER: SPECIFY N CARDIAC ARRHYTHMIA N PNEUMONIA N ATRIAL FIBRILLATION N Gall Stones N PULMONARY EMBOLISM N AUTOIMMUNE DISEASE N Gynecological HistoryNo gynecological history recorded. Obstetrics History GPAL:G 0 P 0 0 0 0 Immunizations Vaccine Type Date Status Note Provider Nam e and Address Organization Details Recorded Time COVID-19, mRNA, LNP-S, PF, 30 mcg/0.3 mL dose 06/22/2021 completed Not Available [facility] 4 07:27:59 COVID-19, mRNA, LNP-S, PF, 30 mcg/0.3 mL dose 02/14/2021 completed Not Available [facility] 4 07:27:59 COVID-19, mRNA, LNP-S, PF, 30 mcg/0.3 mL dose 01/24/2021 completed Not Available [facility] 4 07:27:59 Past Encounters Encounter ID Performer Location Encounter Start Date Encounter Closed Date Diagnosis/Indication Diagnosis SNOMED-CT Code Diagnosis ICD10 Code Diagnosis Note [id number] [facility] Jasvir garcia [facility]ly [facility] [address] [place] [id number] 06/09/2021 00:00:00 06/09/2021 19:55:37 [id number] [facility] Jasvir llalexis [address] [place] [id number] 07/07/2021 00:00:00 07/07/2021 09:32:03 [id number] [facility] Pulmonolo gy [address], [address] [address] 12/21/2021 00:00:00 12/21/2021 15:38:37 [id number] Jeffrey Guaman MD [facility] [address] [place] [id number] 09/26/2022 09:32:19 09/26/2022 10:09:14 Type 2 diabetes mellitus without complication 625190588 E11.9 A1C is 11.3% Start trulicity Pain of ri ght knee joint 3304604325 06295 M25.561 Chronic ob structive pulmonary disease 34313106 J44.9 [id number] Jeffrey Guaman MD [facility] [address] [place] [address] 12/27/2022 09:24:12 12/27/2022 09:59:40 Type 2 diabetes mellitus without complication 911500767 E11.9 A1C is 8.7% down from 11.8% Continue trulicity Neuropathy 873664542 G62 .9 Pain of ri ght knee joint 7567196540 62378 M25.561 Gastroesop hageal reflux disease 231498157 K21.9 [id number] Ole Pierre MD [facility] Pulmonolo gy [address] [place] [address] 01/05/2023 13:29:46 01/05/2023 14:55:23 Obstructive sleep apnea syndrome 14423153 G47.33 [id number] ROBERTO Archibald [facility] [place] [address] [place] [address] 01/20/2023 10:23:12 01/20/2023 16:46:05 Pain of right knee joint 7327217630 80111 M25.486 [id number] ROBERTO Carlson [facility] [address] [facility] [place] [address] 04/06/2023 09:44:00 04/06/2023 10:55:13 Strain of muscle of right shoulder [id number] S46.911A Type 2 audi betes mellitus without complication 206348716 E11.9 Arthritis 0111271 M19.90 Chronic ob structive pulmonary disease 63844293 J44.9 Gastroesop hageal reflux disease 438989708 K21.9 Hypercholesterolemia 136 75804 E78.00 [id number] ROBERTO Carlson [facility] [address] [place] [address] 07/05/2023 10:53:51 07/05/2023 11:22:29 Type 2 diabetes mellitus without complication 668223706 E11.9 Serum thyr oid stimulating hormone level outside reference range 808880636 R89.1 Uncontroll ed type 2 diabetes mellitus 552167013 E11.65 Screening for malignant neoplasm of breast 082647361 Z12.39 Screening for malignant neoplasm of cervix 272056551 Z12.4 Arthritis 3757435 M19.90 Chronic ob structive pulmonary disease 65661519 J44.9 Gastroesop hageal reflux disease 219979757 K21.9 Hypercholesterolemia 136 55193 E78.00 Obstructiv e sleep apnea syndrome 15806560 G47.33 [id number] ROBERTO Carlson [address] [place] [address] 01/01/2024 12:41:08 01/01/2024 13:13:48 Adult health examination 257352631 Z00.00 Screening for disorder 289914860 Z13.9 Screening mammography 24 819255 Z12.31 Type 2 audi betes mellitus without complication 728454022 E11.9 Postmenopa usal osteoporosis 492780472 M81.0 Nicotine dependence 5629 4008 F17.200 Z87.891 Screening for malignant neoplasm of colon 778589201 Z12.11 Arthritis 6617548 M19.90 Chronic ob structive pulmonary disease 67604480 J44.9 Gastroesop hageal reflux disease 628128639 K21.9 Hypercholesterolemia 136 66303 E78.00 Myocardial infarction 22 882005 I21.9 Obstructiv e sleep apnea syndrome 13679798 G47.33 [id number] ROBERTO Carlson [facility] [address] [place] [address] 04/02/2024 12:44:42 04/02/2024 14:07:14 Chronic obstructive pulmonary disease 27058399 J44.9 Uncontroll ed type 2 diabetes mellitus 340786291 E11.65 Type 2 audi betes mellitus without complication 864700613 E11.9 Gastropare sis syndrome 956534641 K31.84 Nausea 713903283 R11.0 Obstructiv e sleep apnea syndrome 13025078 G47.33 Nicotine dependence 5629 4008 F17.200 Z87.522 [id number] Glendy Cedeno [facility] [address] [place] [address] 05/02/2024 11:13:03 05/02/2024 11:51:56 Mammography abnormal 210998755 R92.8 Type 2 audi betes mellitus without complication 924447827 E11.9 Health Concerns Section Related Observation LastModified by Organization Detai ls LastModified Time None Recorded Concern Status LastModified by Organization Details LastModified Time None Recorded Advance Directives Directive None Recorded Payers Encounter Date Sequence Insurance Name Policy Number Policy Garcia Covered Member ID Garcia Member ID Guarantor Name 04/06/2023 1 [facility] ON OR AFTER 03/20/2020 - DUAL ELIGIBLE (MEDICARE REPLACEMENT/AD VANTAGE - HMO) [id number] Maryann Vann [id number] Maryann Vann 04/06/2023 2 [facility] ON OR AFTER 09/17/20 (MEDICAID REPLACEMENT - HMO) [id number] Maryann Vann [id number] Maryann aVnn 07/05/2023 1 [facility] ON OR AFTER 03/20/2020 - DUAL ELIGIBLE (MEDICARE REPLACEMENT/AD VANTAGE - HMO) [id number] Maryann Vann [id number] Maryann Vann 07/05/2023 2 [facility] ON OR AFTER 09/17/20 (MEDICAID REPLACEMENT - HMO) [id number] Maryann Vann [id number] Maryann Vann 01/01/2024 1 [facility] ON OR AFTER 03/20/2020 - DUAL ELIGIBLE (MEDICARE REPLACEMENT/AD VANTAGE - HMO) [id number] Maryann Vann [id number] Maryann Vann 04/02/2024 1 [facility] ON OR AFTER 03/20/2020 - DUAL ELIGIBLE (MEDICARE REPLACEMENT/AD VANTAGE - HMO) [id number] Maryann Vann [id number] Maryann Vann Notes Date Note Type Note Provider Name and Address Organization Details Recorded Time 04/06/2023 text/html right arm 3 weeks . 8 or 9 on a scale of 1-10 ROBERTO Carlson [address], [place], [address], [employer] 04/08/2023 20:56:18 07/05/2023 text/html no changes , needs refills ROBERTO Carlson [address], [place], [address], [employer] 07/16/2023 23:41:07 01/01/2024 text/html Mainly lonely , daughter listens . no si/hi . lost a a daughter at age 2 and a daughter after paralyzed from an accident committed suicide ROBERTO Carlson [address], [place], [address], [employer] 01/02/2024 16:50:51 04/02/2024 text/html nausea and vomiting at night only ROBERTO Carlson [address], [place], [address], [employer] 04/09/2024 15:31:22 OBGyn Episode No OBEpisode recorded.
--- OUTSIDE RECORDS SUMMARY | 2024-05-03 14:14 | XMS_ITS | Referral Summary ---
Author Organization [facility] [email or web address] Address [address] [place] [address] Care Team Providers Care School Administrator Name Role Phone Kathleen Flores APRN-JAVA J2EE ARCHITECT Unavailable [phone] [facility] [email or web address],non-owned Affiliates and Associated Physician Practices is amultiple site organization consisting of ambulatory clinics and hospital sitesin [place], [place], [place] and [place]. This disclosure is being madepursuant to the Care Everywhere program and may not contain all information available regarding this patient. Last updated 17.[facility] [email or web address] Allergies No known active allergies Medications * [...] Chronic obstructive pulmonary disease, unspecified COPD type ([facility]) Inhale 1 (one) puff by mouth once daily Rinse mouth after use 30 Each 1 04/01/2021 Active Alcohol Swabs (ALCOHOL PREP) 70 %Indications:Type 2 diabetes mellitus without complication, without long-term current use of insulin ([facility]) Use 1 device once daily 100 Each 04/01/2021 Active lancetsIndications: Type 2 diabetes mellitus without complication, without long-term current use of insulin ([facility]) Use 1 (one) Each once daily (E11.9) Type 2 diabetes mellitus without complication, without long-term current use of insulin. Use Onetouch Delica lancets. 100 Each 04/01/2021 Active Blood Glucose Monitoring Suppl (ONETOUCH VERIO FLEX SYSTEM) w/Device KITIndications:Type 2 diabetes mellitus without complication, without long-term current use of insulin ([facility]) Use 1 kit as instructed once daily Test daily. (E11.9) Type 2 diabetes mellitus without complication, without long-term current use of insulin 1 kit 04/01/2021 Active blood glucose test stripIndications:Ty pe 2 diabetes mellitus without complication, without long-term current use of insulin ([facility]) Use 1 (one) strip once daily Please dispense One Touch Verio strips (E11.9) Type 2 diabetes mellitus without complication, without long-term current use of insulin 50 strip 04/01/2021 Active lisinopril (PRINIVIL; ZESTRIL) 10 MG tabletIndications:T ype 2 diabetes mellitus without complication, without long-term current use of insulin ([facility]) TAKE 1 TABLET BY MOUTH [...] depressive disord er), recurrent episode, moderate 03/20/2014 [place] (myocardial infarction) 03/20/2007 COPD (chronic obstructive pulmonary disease) 03/2007 REYES (generalized anxiety disorder) Resolved Problems Problem Noted Date Diagnosed Date Resolved Date Moderate episode of recurren t major depressive disorder 01/09/2021 Immunizations Name Administration Dates Next Due Covid DEONTICS primary monoval ent 12+ yr 0.3mL Purple [...] - 20.0 mg/dL 01/15/2021 5:25 PM CDT [facility] Urine URINE SPECIMEN OBTAINED BY CLEAN CATCH PROCEDURE / Unknown Collection / Unknown 01/15/2021 2:41 PM CDT 01/15/2021 2:41 PM CDT Bisi Ko PA-C LAB - URINE CHEMISTR Y ORDERABLES Performing Organization Address [facility]/State/[facility] de Phone Number [facility] [address] * (ABNORMAL) COMPREHENSIVE METABOLIC PANEL (01/15/2021 2:41 PM CDT) Glucose 201(H) 70 - 125 mg/dL 01/15/2021 6:13 PM CDT [facility] Sodium 135(L) 136 - 145 mmol/L 01/15/2021 6:13 PM CDT [facility] Potassium 3.8 3.4 - 4.5 mmol/L 01/15/2021 6:13 PM CDT [facility] Chloride 103 98 - 107 mmol/L 01/15/2021 6:13 PM CDT [facility] CO2 22 22 - 29 mmol/L 01/15/2021 6:13 PM T [facility] Calcium 9.8 8.4 - 10.2 mg/dL 01/15/2021 6:13 PM [facility] Anion Gap 14 10 - 20 mmol/L 01/15/2021 6:13 PM [facility] BUN 12.7 9.8 - 20.1 mg/dL 01/15/2021 6:13 PM T [facility] Creatinine 0.76 0.57 - 1.11 mg/dL 01/15/2021 6:13 PM T [facility] eGFR by MDRD >60 >60 mL/min/1.7 3m2 01/15/2021 6:13 PM T [facility] eGFR by MDRD >60 >60 mL/min/1.7 3m2 01/15/2021 6:13 PM T [facility] Alkaline Phosphatase 105 40 - 150 U/L 01/15/2021 6:13 PM T [facility] ALT 14 5 - 55 U/L 01/15/2021 6:13 PM [facility] AST 10 5 - 34 U/L 01/15/2021 6:13 PM T [facility] Protein Total 6.9 6.4 - 8.3 gm/dL 01/15/2021 6:13 PM [facility] Albumin 3.9 3.5 - 5.0 gm/dL 01/15/2021 6:13 PM [facility] Globulin Total 3.0 2.6 - 4.0 gm/dL 01/15/2021 6:13 PM [facility] Albumin/Globulin Ratio 1.3 0.9 - 1.6 01/15/2021 6:13 PM [facility] Bilirubin Total 0.4 0.2 - 1.2 mg/dL 01/15/2021 6:13 PM T [facility] Blood BLOOD SPECIMEN / Unknown Venipuncture / Unknown 01/15/2021 2:41 PM CDT 01/15/2021 2:41 PM T Bisi Ko PA-C LAB - CHEMISTRY [facility] Organization Address City/State/[facility] de Phone Number [facility] [address] * HEPATITIS C ANTIBODY (01/15/2021 2:41 PM CDT) Pathologist [facility] Interpretation Hepatitis C Antibody HILARY Negative Negative 01/18/2021 9:18 AM CDT [employer] ([facility]) Comment: INTERPRETIVE INFORMATION: Hepatitis C Virus [...] Index <0.02 IV 01/18/2021 9:18 AM CDT [employer] ([facility]) Comment: Performed by [employer], [address] [place] [address] [email or web address], Paty Monzon MD, Lab. Director Blood BLOOD SPECIMEN / Unknown Venipuncture / Unknown 01/15/2021 2:41 PM CDT 01/15/2021 2:41 PM CDT Bisi Ko PA-C LAB - CHEMISTRY OSC[facility] ANDERSON [employer] [facility]) [address] * (ABNORMAL) HEMOGLOBIN A1C - POINT OF CARE (AMB) [facility] (12/08/2020) Pathologist [facility] Hemoglobin A1c POCT 12.2(A) 4.2 - 5.8 % [facility] QC Verified Yes Yes [facility] Blood BLOOD SPECIMEN / Unknown 12/08/2020 Bisi Ko PA-C LAB - POINT OF CARE ORDERABLES [facility] [address] [place] [address], [facility] [phone] from Last 3 Months or Most Recently Relevant to Health Maintenance Care Teams School Administrator Relationship Specialty Start Date End Date Kathleen Flores, SCIENTIST ELECTRONICS-JAVA J2EE ARCHITECT [address] [place] [address] Nurse Practitioner Nurse Practitioner Psychiatric Mental Health 12/08/20
--- OUTSIDE RECORDS SUMMARY | 2024-05-03 14:14 | XMS_ITS | Clinical Summary ---
Author Organization [facility] Address [address] [place] [address] Care Team Providers Care Caul Dresser Name Role Phone Guido Damon MD Unavailable [phone] Enzo Butts Primary Care Provider + Allergies [...] Severe obesity (BMI 35.0-39. 9) with comorbidity ([facility]) 06/06/2017 05/18/2023 Uncontrolled type 2 diabetes mellitus 10/06/2016 05/18/2023 Arthritis 10/05/2016 05/18/2023 Type 2 diabetes mellitus wit hout complication ([facility]) 10/05/2016 05/18/2023 Abscess of breast 07/14/2016 05/18/2023 DM (diabetes mellitus) ([facility]) 017 05/18/2023 Moderate episode of recurren t major depressive disorder ([facility]) 03/20/2014 05/18/2023 COPD (chronic obstructive pu lmonary disease) ([facility]) 03/20/2007 05/18/2023 [place] (myocardial infarction) ([facility]) 03/200705/18/2023 Pure hypercholesterolemia Essential hypertension 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 More than 4 times per year 05/06/2023 Do you belong to any clubs o r organizations such as restorationism groups, unions, fraternal or athletic groups, or [...] Recorded Patient Health Questionnaire-2 Score 0 05/06/2023 [facility] - Occupational Stress Questionnaire Answer [...] place to sleep or slept in a mcc (including now)? Yes 05/06/2023 Comments Unknown Sex and Gender Information Value Date Recorded Sex Assigned at Female 05/06/2023 3:50 AM INTELLIGENCE AGENT Legal Sex Female 11:41 PM CDT Gender Identity Female 05/06/2023 3:50 AM INTELLIGENCE AGENT Sexual Orientation Not on file Occupation Industry Job Start Date Job End Date Not on file Not on file Not on file Not on file Last Filed Vital Signs Vital Sign Reading Time Taken Comments Blood Pressure 126/62 12/27/2023 12:30 AM CDT Pulse 59 12/27/2023 12:30 AM CDT Temperature 35.7 C (96.3 F) 12/26/2023 11:02 PM CDT Respiratory Rate 16 12/27/2023 12:30 AM CDT [...] Comments HEPATITIS PANEL,ACUTE Routine 05/06/2023 8:30 AM INTELLIGENCE AGENT LIPID PANEL Routine 05/06/2023 8:30 AM INTELLIGENCE AGENT HEMOGLOBIN, GLYCOSYLATED Routine 05/06/2023 8:30 AM INTELLIGENCE AGENT from Last 3 Months or Most Recently Relevant to Health Maintenance Results * (ABNORMAL) HEMOGLOBIN, GLYCOSYLATED (05/06/2023 8:30 AM INTELLIGENCE AGENT) HGB A1C 7.6(H) <5.7 % 05/06/2023 8:57 AM INTELLIGENCE AGENT [facility] Comment: INCREASED RISK OF DIABETES <5.7% NON-DIABETES 5.7-6.4% INCREASED RISK FOR FUTURE DIABETES > OR = 6.5 CONSISTENT WITH DIABETES STANDARDS OF MEDICAL CARE IN DIABETES-2010 DIABETES CARE, 33(SUPP 1): S1-S61,2010 ESTIMATED AVG GLUCOSE 171 mg/dL 05/06/2023 8:57 AM [facility] 05/06/2023 8:30 AM INTELLIGENCE AGENT Shanelle STALLINGSNP LABORATORY Final Res ult [facility] [address] [place] [address], * LIPID PANEL (05/06/2023 8:30 AM INTELLIGENCE AGENT) CHOLESTEROL 161 <200.0 MG/DL 05/06/2023 9:32 AM [facility] TRIGLYCERIDES 64 <150 MG/DL 05/06/2023 9:32 AM [facility] HDL 70 >40.0 MG/DL 05/06/2023 9:32 AM [facility] LDL (CALCULATED) 78 <100 MG/DL 05/06/19 9:32 AM [facility] NON HDL CHOLESTEROL 91 <130 MG/DL 05/06 9:32 AM [facility] CHOL/HDL RATIO 2.3 0.0 - 4.5 05/06/2023 9:32 AM [facility] VLDL CALCULATION 13 5 - 55 MG/DL 05/06/2023 9:32 AM [facility] LIPID INTERPRETATION 05/06/2023 9:32 AM [facility] Comment: [facility] CONCENSUS REPORT RECOMMENDATIONS: ADULT CHILD LOW RISK: CHOLESTEROL <200 <170 TRIGLYCERIDE <150 --- HDL >=60 --- LDL <100 <110 BORDERLINE: CHOLESTEROL 200-239 170-199 TRIGLYCERIDE 150-199 --- HDL 40-59 --- LDL 100-159 110-129 HIGH RISK: CHOLESTEROL >=240 >=200 TRIGLYCERIDE >=200 --- HDL <40 --- LDL >=160 >=130 05/06/2023 8:30 AM INTELLIGENCE AGENT Shanelle Luis Daniel [facility] Final Res ult [facility] [address] [place] [address], [place] [phone] * HEPATITIS PANEL,ACUTE (05/06/2023 8:30 AM INTELLIGENCE AGENT) HEPATITIS B SURFACE AG NON-REACTI VE NON-REACTI VE 05/08/2023 8:21 AM INTELLIGENCE AGENT [facility] HEP B CORE IGM NON-REACTI VE NON-REACTI VE 05/08/2023 8:21 AM INTELLIGENCE AGENT [facility] HAV IGM NON-REACTI VE NON-REACTI VE 05/08/2023 8:21 AM INTELLIGENCE AGENT [facility] HEPATITIS C AB NON-REACTI VE NON-REACTI VE 05/08/2023 8:21 AM INTELLIGENCE AGENT [facility] 05/06/2023 8:30 AM INTELLIGENCE AGENT Shanelle Luis Daniel [facility] Final Res ult Performing Organization Address City/[facility] Co de Phone Number [facility] [address] [place] [address], [place] [phone] from Last 3 Months or Most Recently Relevant to Health Maintenance Additional Health Concerns Infection Onset Date Last Indicated MRSA Comment:05/06/23 Blood (RR) 05/06/2023 05/06/2023 Insurance [facility] Advance Directives Documents on File Type Date Recorded Patient Pi/Senior Research Associate Expl anation Advance Directives and Living Will 05/09/2023 8:30 AM 05/08/2023 [place]A FOR HEALTH CARE * Full Code (Latest Code Status on File) Date Activated Date Inactivated Comments 05/06/2023 3:05 AM 05/21/2023 2:02 PM Care Teams Caul Dresser Relationship Specialty Start Date End Date Enzo Butts PA [facility] [place] [address] PCP - General PHYSICIAN DEMAND PLANNING ANALYST 11/07/23 Guido Damon MD [address] [address] Kittrell Bindery Assistant CARDIOVASCULAR DISEASE 08/19/15
--- OUTSIDE RECORDS SUMMARY | 2024-05-03 14:14 | XMS_ITS | Encounter Summary ---
Author Organization [facility] [employer] [facility] Address [address] [place] [address] Care Team Providers Care Drywall Finisher Foreman Name Role Phone Unavailable Primary Care Provider Unavailabl e Encounter Details Date Type Department Care Team (Late st Contact Info) Description 05/03/2024 1:30 PM SENIOR CAREGIVER Office Visit [facility] Oncology and Hematology - [place] [address] [facility] [address] [place] [address] Steven Sims MD [address] [place] [address] Malignant neoplasm of upper-inner quadrant of right breast in female, estrogen receptor positive (CMS/HCC) (Primary Dx) Social History Tobacco Use Types Packs/Day Years Used Date Smoking Tobacco: Every Day Cigarettes 1 40 Started: 05/03/1984 Smokeless Tobacco: Never Alcohol Use Standard Drinks/Week Comments Never 0 (1 standard drink = 0.6 oz pur e alcohol) Comments Unknown Sex and Gender Information Value Date Recorded Sex Assigned at Not on file Legal Sex Female 1:40 PM SENIOR CAREGIVER Gender Identity Not on file Sexual Orientation Not on file documented as of this encounter Last Filed Vital Signs Vital Sign Reading Time Taken Comments Blood Pressure 162/89 05/03/2024 1:30 PM SENIOR CAREGIVER Pulse 75 05/03/2024 1:30 PM SENIOR CAREGIVER Temperature 36.6 C (97.9 F) 05/03/2024 1:30 PM SENIOR CAREGIVER Respiratory Rate 16 05/03/2024 1:30 PM SENIOR CAREGIVER Oxygen Saturation 95% 05/03/2024 1:30 PM SENIOR CAREGIVER Inhaled Oxygen Concentration - - Weight 68.5 kg (151 lb) 05/03/2024 1:30 PM SENIOR CAREGIVER Height 154.9 cm (5' 1 ) 05/03/2024 1:30 PM SENIOR CAREGIVER Body Mass Index 28.53 05/03/2024 1:30 PM SENIOR CAREGIVER documented in this encounter Plan of Treatment Upcoming Encounters Date Type Department Care Team (Late st Contact Info) Description 05/16/2024 4:30 PM SENIOR CAREGIVER Telephone Check Up [facility] Oncology and Hematology [facility] [address] [facility] [address] [place] [address] Steven Sims MD [address] [facility] [address] [place] [address] Scheduled Orders Name Type Priority Associated Diagnoses Orde r Schedule CBC WITH DIFFERENTIAL Lab Stat Malignant neoplasm of upper-inner quadrant of right breast in female, estrogen receptor positive (CMS/HCC) Expected: 05/03/2024, Expires: 05/03/2025 COMPREHENSIVE METABOLIC PANEL Lab Stat Malignant neoplasm of upper-inner quadrant of right breast in female, estrogen receptor positive (CMS/HCC) Expected: 05/03/2024, Expires: 05/03/2025 CANCER ANTIGEN 15-3 Lab Routine Malignant neoplasm of upper-inner quadrant of right breast in female, estrogen receptor positive (CMS/HCC) Expected: 05/03/2024, Expires: 05/03/2025 documented as of this encounter Visit Diagnoses Diagnosis Malignant neoplasm of upper-inner quadrant of right breast in female, estrogen receptor positive (CMS/HCC)- Primary documented in this encounter
[2024-05-03 14:25] LABS: Basophils Absolute Auto 0.1 K/mm3 (0.0-0.1); Basophils Percent Auto 0.7 % (0.2-1.2); Eosinophils Absolute Auto 0.4 K/mm3 (0-0.3); Eosinophils Percent Auto 3.1 % (0-4.4); Hematocrit 49.9 % (37.0-47.0); Hemoglobin 16.6 g/dL (12.0-15.0); Immature Granulocyte Absolute 0.06 K/mm3 (0.00-0.031); Immature Granulocyte Percent A 0.5 % (0-0.5); Lymphocytes Absolute Auto 3.55 K/mm3 (0.9-3.2); Lymphocytes Percent Auto 30.4 % (18.3-44.2); Mean Corpuscular HGB Conc 33.3 g/dl (32-36); Mean Corpuscular Hemoglobin 29.3 pg (26-34); Monocytes Absolute Auto 0.6 K/mm3 (0.1-0.6); Monocytes Percent Auto 4.7 % (2.6-8.5); Neutrophils Absolute Auto 7.1 K/mm3 (1.3-6.7); Neutrophils Percent Auto 60.6 % (45.5-73.1); Platelet Count Result 178 k/mm3 (150-375); Red Blood Count 5.67 M/mm3 (4.2-5.4); Red Cell Distribution Width 12.7 % (11.5-14.5); White Blood Count 11.7 K/mm3 (4.5-10.0)
[2024-05-03 16:11] LABS: Alanine Aminotransferase 15 U/L (6-35); Albumin Level 4.2 g/dL (3.5-5.1); Alkaline Phosphatase 90 U/L (38-126); Anion Gap 12 mmol/L (4-12); Aspartate Amino Transferase 31 U/L (14-36); Bilirubin,Total 0.5 mg/dL (0.2-1.3); Blood Urea Nitrogen 12 mg/dL (7-17); Calcium 9.8 mg/dL (8.4-10.2); Carbon Dioxide 28 mmol/L (22-30); Chloride 98 mmol/L (98-107); Estimated Glomerular Filt Rate > 60; Glucose 92 mg/dL (65-110); Potassium 3.7 mmol/L (3.4-5.0); Sodium 138 mmol/L (137-145)
[2024-05-05 03:23] LABS: CA 15-3 23 U/mL (<32)
== END 2024-05-03 14:12 | disposition home or self-care (01) ==
LOC: ANHLAB 14:12
PROVIDERS: Visit Provider Internal Medicine Hematology & Oncology
DX: C50.211 Malignant neoplasm of upper-inner quadrant of right female breast (principal); Z17.0 Estrogen receptor positive status [ER+]
CPT/HCPCS: 36415; 80053; 85025; 86300